=== PATIENT | female | born 1965 | race Caucasian/White ===

== ENCOUNTER 2020-04-22 16:58 | Emergency (ER) | payer OTHER, SELFPAY ==
[2020-04-22 17:15] VITALS: BP 123/85; PULSE 92; RESP 18; TEMP 36.6; O2SAT 95
--- NOTE | 2020-04-22 17:22 | ECG_ITS ---
Test Reason : MED CLLEARENCE Blood Pressure : / mmHG Vent. Rate : 083 BPM Atrial Rate : 083 BPM P-R Int : 136 ms QRS Dur : 078 ms QT Int : 386 ms P-R-T Axes : 069 056 050 degrees QTc Int : 453 ms Normal sinus rhythm Nonspecific T wave abnormality Abnormal ECG When compared with ECG of 17-MAR-2018 10:27, Premature atrial complexes are no longer Present T wave inversion now evident in Anterior leads Referred By: Neena Lucas Electronically Signed By:LILLY VALENCIA
[2020-04-22 17:27] VITALS: PULSE 92; RESP 20; TEMP 36.6; O2SAT 95; BMI 48.2
--- NOTE | 2020-04-22 17:35 | PC.NURSE ---
Pt arrived w/ EMS, tearful, speech slurred. Pt admits to drinking 1/2 bottle of vodka. Pt states she has a hx etoh use in the past but not recently. Pt states that she was waiting for results from COVID testing and became frustrated. Pt denies SI.
--- NOTE | 2020-04-22 17:45 | ED.ALCOHOL ---
HPI - Alcohol General Chief Complaint: ETOH/Substance Use Stated Complaint: crisis evaluation Time Seen by Provider: 04/22/20 17:16 Source: patient and EMS Mode of arrival: EMS Limitations: no limitations History of Present Illness HPI narrative: 54-year-old female with a past medical history of hypertension here with alcohol intoxication. She tells me that she has had body aches, back pain, malaise for the last few days and had outpatient COVID test done 2 days ago. She called her primary care doctor today to try to find her results and became very frustrated as she felt like she was not getting her answers. She tells me she drank 1/2 a bottle of vodka this afternoon. Previous history of alcohol abuse but has been sober for more than 6 months. No additional substance use. EMS was called as the patient was on the phone with her primary care doctor was very tearful and then hung up the phone. They were sent for a well check. Patient was then transported here to the emergency department. She denies SI, HI. Denies hallucinations. She has no physical complaints outside of her previously mentioned complaints. MD complaint: alcohol intoxication Last drink: Hours (ago) Chronic alcohol use: No Previous visits for alcohol intoxication: No Recent trauma: No Associated symptoms: denies other symptoms Treatments prior to arrival: none Related Data Home Medications Medication Instructions Recorded Confirmed naltrexone 50 mg PO DAILY 04/22/20 04/22/20 sertraline 50 mg PO DAILY 04/22/20 04/22/20 Allergies Allergy/AdvReac Type Severity Reaction Status Date / Time Penicillins [PENICILLINS] Allergy Intermediate HIVES Unverified 12/18/19 17:10 Review of Systems Review of Systems: Yes all other systems are reviewed and are negative Constitutional: Constitutional: Reports no additional constitutional complaints, Reports body ache(s), Denies chills, Denies fever(s), Denies headache(s), Reports malaise and Denies weakness Eyes: Eyes: Reports no additional eye complaints and Denies change in vision ENT: Reports system reviewed and no additional complaints, except as documented, Denies dizziness, Denies headache(s), Denies nasal congestion, Denies nasal discharge and Denies neck pain Cardiovascular: Cardiovascular: Reports no additional cardiovascular complaints, Denies chest pain, Denies leg edema and Denies dyspnea Respiratory: Respiratory: Reports no additional respiratory complaints, Denies cough and Denies dyspnea Gastrointestinal: Gastrointestinal: Reports no additional gastrointestinal complaints, Denies abdominal pain, Denies diarrhea, Denies nausea and Denies vomiting Genitourinary: Genitourinary: Reports no additional female genitourinary complaints and Denies urinary incontinence Musculoskeletal: Musculoskeletal: Reports no additional musculoskeletal complaints, Reports back pain, Denies arthralgias, Denies joint swelling, Denies neck pain, Denies numbness and Denies tingling Integumentary/Breasts: Skin/Breast: Reports system reviewed and no additional complaints, except as docu and Denies rash Neurologic: Reports system reviewed and no additional complaints, except as documented, Denies Abnormal speech present, Denies dizziness, Denies headache(s), Denies numbness, Denies tingling and Denies weakness PMFSH Past Medical History Attestation statement: The following information was validated with the patient. Source: old records reviewed and nursing notes reviewed Social History Social History Alcohol intake: current Alcohol type: hard liquor Smoking Status: Current every day smoker Use of substances other than those prescribed or required for medical reasons: No Advance Directives: No Advance Directives Information Provided: Yes Physical Exam Vital Signs: Vital Signs: Last Vital Signs Temp 97.8 F 04/22/20 17:27 Pulse 92 04/22/20 17:27 Resp 20 04/22/20 17:27 BP 123/85 04/22/20 17:15 Pulse Ox 95 04/22/20 17:27 Body Mass Index 48.2 Const: General: cooperative, healthy appearing, comfortable, no acute distress and intoxicated appearing Orientation/consciousness: patient oriented x3 Limitations: no limitations HENMT: Head: Yes normal to inspection Ears: hearing grossly normal bilaterally General nose exam: Normal external nose present Face and sinus: Yes normal facial exam Mouth: Normal oral and palatal mucosa present Throat: Yes posterior oropharynx normal Eyes: General: appearance normal, both eyes and all related structures Pupils: Equal, round and reactive pupils present Neck: Neck: Yes normal visual inspection Chest: Chest palpation & inspection: normal inspection of the chest Resp: Effort & Inspection: normal respiratory effort Auscultation: clear to auscultation bilaterally Cardio: Rate: regular rate Rhythm: regular rhythm Peripheral pulses: Peripheral pulses 2+ throughout GI: Inspection: Yes normal to inspection Palpation (GI): Soft to palpation and nontender Auscultation: normal bowel sounds Back/Spine/Pelvis: Thoracic/Lumbar Spine: thoracic and lumbar spine normal to inspection Skin: General skin exam: no rashes or lesions noted Neuro: General: patient oriented x3, no focal motor deficits and normal sensation to monofilament Cranial nerves: Yes Equal, round and reactive pupils present Cognition (Neuro): normal cognition Speech: No Abnormal speech present Gait exam (Neuro): Normal gait present Motor exam (neuro): 5/5 motor strength present throughout Extrem: General: Yes normal to inspection Course Course Course Narrative: 54-year-old female here with alcohol intoxication. EMS was called as a well check the patient called her primary care doctor was very tearful and then hung up the phone. She does tell me that she drink today and has been sober for more than 6 months. This has caused her to feel upset. She denies any SI or HI or hallucinations. Denies additional substances. She did get COVID testing several days ago for complaints of malaise, body aches and back pain and does not know her results. WIll check labs, EKG, COVID testing. [facility] - Alcohol Medical Records Attestation: I reviewed the patient's medical records. Lab Data Attestation: I reviewed the patient's lab results. Result diagrams: 04/22/20 19:40 Labs: Lab Results 04/22/20 04/22/20 04/22/20 Range/Units 17:49 18:04 18:05 Hold Blue Top Sodium (135-145) mmol/L Potassium (3.3-5.1) mmol/l Chloride (96-108) mmol/L Carbon Dioxide (22-29) mmol/L Anion Gap (12-20) BUN (9-16) mg/dL Creatinine (0.5-1.4) mg/dL Estim Creat Clear Calc Estimated GFR Random Glucose (60-115) mg/dL Calcium (8.4-10.2) mg/dL Urine Color YELLOW Urine Appearance CLEAR Urine pH 5.5 (5.0-8.0) Ur Specific [place] <= 1.005 (1.005-1.025) Urine Protein NEG (NEG-TRACE) MG/DL Urine Glucose (UA) NEG (NEG) MG/DL Urine Ketones NEG (NEG) MG/DL Urine Blood NEG (NEG) Urine Nitrite NEG (NEG) Ur Leukocyte Esterase NEG (NEG) Urine Opiates Screen Not Detected (Not Detect) Ur Barbiturates Screen Not Detected (Not Detect) Ur Phencyclidine Scrn Not Detected (Not Detect) Ur Amphetamines Screen Not Detected (Not Detect) U Benzodiazepines Scrn Not Detected (Not Detect) Urine Cocaine Screen Not Detected (Not Detect) U Marijuana (THC) Screen Not Detected (Not Detect) Ethyl Alcohol mg/dL COVID-19 ([facility]) Negative (Negative) COVID-19 Clin Com See Note 04/22/20 04/22/20 04/22/20 Range/Units 19:40 19:40 19:40 Hold Blue Top SEE NOTE Sodium 147 H (135-145) mmol/L Potassium 3.5 (3.3-5.1) mmol/l Chloride 99 (96-108) mmol/L Carbon Dioxide 33 H (22-29) mmol/L Anion Gap 19 (12-20) BUN 13 (9-16) mg/dL Creatinine 0.79 (0.5-1.4) mg/dL Estim Creat Clear Calc 94.8 Estimated GFR > 60 Random Glucose 82 (60-115) mg/dL Calcium 10.4 H (8.4-10.2) mg/dL Urine Color Urine Appearance Urine pH (5.0-8.0) Ur Specific [place] (1.005-1.025) Urine Protein (NEG-TRACE) MG/DL Urine Glucose (UA) (NEG) MG/DL Urine Ketones (NEG) MG/DL Urine Blood (NEG) Urine Nitrite (NEG) Ur Leukocyte Esterase (NEG) Urine Opiates Screen (Not Detect) Ur Barbiturates Screen (Not Detect) Ur Phencyclidine Scrn (Not Detect) Ur Amphetamines Screen (Not Detect) U Benzodiazepines Scrn (Not Detect) Urine Cocaine Screen (Not Detect) U Marijuana (THC) Screen (Not Detect) Ethyl Alcohol 321 H* mg/dL COVID-19 ([facility]) (Negative) COVID-19 Clin Com Discharge Plan Discharge Prescriptions: No Action naltrexone 50 mg Tablet 50 mg PO DAILY RF: 0 sertraline 50 mg Tablet 50 mg PO DAILY RF: 0
--- NOTE | 2020-04-22 17:58 | PC.NURSE ---
Pt awake alert, accepted covid testing, now eating meal.
[2020-04-22 18:24] LABS: Glucose Urine UA NEG (NEG); Leukocyte Esterase Urine NEG (NEG); Nitrite Urine NEG (NEG); PH 5.5 (5.0-8.0); Specific Gravity - Urine <= 1.005 (1.005-1.025); Urine Blood NEG (NEG); Urine Ketones NEG (NEG); Urine Protein NEG (NEG-TRACE)
[2020-04-22 18:25] LABS: Appearance Urine CLEAR; Color Urine YELLOW
[2020-04-22 19:13] LABS: COVID-19 Test Negative (Negative)
--- NOTE | 2020-04-22 19:14 | PC.NURSE ---
Patient is in her bed lying on her side calm and quiet, slurred speech, alert but continues under influence, patient seems happy when she was told her covid test is negative, denied distress, will continue to monitor.
[2020-04-22 19:45] LABS: Amphetamine Screen Urine Not Detected (Not Detect); Barbiturates, Urine Not Detected (Not Detect); Benzodiazepines Screen Urine Not Detected (Not Detect); Cannabinoid Screen Urine Not Detected (Not Detect); Cocaine Screen Urine Not Detected (Not Detect); Opiate Screen Urine Not Detected (Not Detect); Phencyclidine Screen Urine Not Detected (Not Detect)
[2020-04-22] MEDS: LORazepam 1 MG TABLET PO (19:46)
--- NOTE | 2020-04-22 19:50 | PC.NURSE ---
Patient got anxious/restless/frightened during and after lab draw, provider notified/ordered Ativan 1 mg/administered as ordered, will continue to monitor.
[2020-04-22 20:12] LABS: Ethanol 321 mg/dL
[2020-04-22 20:15] LABS: Anion Gap 19 (12-20); Blood Urea Nitrogen 13 mg/dL (9-16); Calcium 10.4 mg/dL (8.4-10.2); Carbon Dioxide 33 mmol/L (22-29); Chloride 99 mmol/L (96-108); Creatinine Clr Calc Pharmacy 94.8; Estimated Glomerular Filt Rate > 60; Glucose Random 82 mg/dL (60-115); Potassium 3.5 mmol/l (3.3-5.1); Sodium 147 mmol/L (135-145)
[2020-04-23 00:24] LABS: MANUAL DIFF FLAG NO
[2020-04-23 00:31] LABS: Basophils Absolute Auto 0.1 X10*3/uL (0.0-0.2); Basophils Percent Auto 1.2 % (0-2); Eosinophils Absolute Auto 0.3 X10*3/uL (0.0-0.4); Eosinophils Percent Auto 5.9 % (0-4); Hematocrit 32.3 % (37-47); Hemoglobin 10.9 g/dl (12.0-16.0); Imm Gran Abs Auto 0.02 X10*3/uL (0.00-0.03); Imm Gran Pct Auto 0.4 % (0.0-0.4); Lymphocytes Absolute Auto 2.5 X10*3/uL (1.2-4.9); Lymphocytes Percent Auto 50.3 % (20-40); Mean Corpuscular HGB Conc 33.7 g/dl (31.0-35.0); Mean Corpuscular Hemoglobin 30.5 pg (27.0-33.0); Mean Corpuscular Volume 90.5 fL (80-98); Mean Platelet Volume 9.9 fL (9.4-12.3); Monocytes Absolute Auto 0.4 X10*3/uL (0.1-1.2); Monocytes Percent Auto 7.3 % (2-11); Neutrophils Absolute Auto 1.8 X10*3/uL (2.0-8.3); Neutrophils Percent Auto 34.9 % (45-73); Platelet Count 162 X10*3/uL (160-400); Red Blood Count 3.57 X10*6/uL (4.20-5.50); Red Cell Distribution Width 15.3 % (11.0-16.0); White Blood Count 5.1 X10*3/uL (4.8-10.8)
--- NOTE | 2020-04-23 07:15 | PC.NURSE ---
Report received from CHRISTINE Matthews. Pt awake, eating breakfast.
[2020-04-23 08:00] VITALS: BP 132/84; PULSE 81; RESP 20; TEMP 36.4; O2SAT 96
--- NOTE | 2020-04-23 08:41 | PC.NURSE ---
CARE team in to see. Pt alert, gait steady when ambulating.
--- NOTE | 2020-04-23 08:55 | PC.NURSE ---
CARE team Amor in to see pt re: resources regarding relapse.
--- NOTE | 2020-04-23 08:57 | MHC.CARE ---
CARE Team met with Pt who is requesting be discharged. Pt denied SI/HI. Pt presented to the ED with BAL over 300 on 04/22/20. Pt offered different resources and support by t/w. Pt offered Crisis and/or detox support which Pt declined. Pt provided with [facility] Crisis information and encouraged to return to [facility] ED if needed.
--- NOTE | 2020-04-23 09:03 | MHC.RECOVSUP ---
Recovery Support note: Patient is a 55 year old Hungarian speaking female who presented to [facility] ED via EMS intoxicated reporting life stressors. This staff writer met with patient in [facility] to discuss her alcohol use and treatment options. Patient reports she had six months sobriety and relapsed due to numerous stressors. Discussed outpatient supports with patient including AA, [facility], IOP and recovery coaching. Patient is well aware of these supports and reports she can access them if she decides to. Patient reports she has a therapist who has been helpful and who she can reach out to for additional support. Encouraged patient to come up with a relapse prevention plan and to utilize the supports she has in place when things get stressful. Encouraged patient that she should be proud of her period of sobriety and to not let the relapse slow down her progress. Discussed case with patient's RN and Care Team.
--- NOTE | 2020-04-23 09:03 | PC.NURSE ---
Pt given discharge instructions, verbalized understand of instructions, states she can be safe, states stepfather will give her a ride home.
== END 2020-04-23 09:03 | disposition home or self-care (01) ==
PROVIDERS: Nurse Practitioner Family; Emergency Provider Emergency Medicine
DX: F10.129 Alcohol abuse with intoxication, unspecified (principal); M79.10 Myalgia, unspecified site; Y90.8 Blood alcohol level of 240 mg/100 ml or more; F17.200 Nicotine dependence, unspecified, uncomplicated; Z71.6 Tobacco abuse counseling; Z20.828 Contact with and (suspected) exposure to other viral communicable diseases; Z71.41 Alcohol abuse counseling and surveillance of alcoholic
CPT/HCPCS: 36415; 80048; 80307; 80320; 81003; 85025; 87635; 93005; 99283; 99284

== ENCOUNTER 2020-05-02 12:24 | Emergency (ER) | payer OTHER, SELFPAY ==
[2020-05-02 12:33] VITALS: BP 140/96; PULSE 82; RESP 16; TEMP 36.8; O2SAT 95; BMI 21.4
--- NOTE | 2020-05-02 12:58 | ECG_ITS ---
Test Reason : AMS Blood Pressure : / mmHG Vent. Rate : 070 BPM Atrial Rate : 070 BPM P-R Int : 142 ms QRS Dur : 086 ms QT Int : 404 ms P-R-T Axes : 056 060 046 degrees QTc Int : 436 ms Normal sinus rhythm Cannot rule out Anterior infarct , age undetermined Abnormal ECG When compared with ECG of 23-APR-2020 01:38, T wave inversion no longer evident in Anterior leads Referred By: Lianet Donovan Electronically Signed By:Brayan Florian
--- NOTE | 2020-05-02 13:00 | XR_ITS ---
EXAMINATION: XR CHEST CLINICAL INFORMATION: weakness, sob, abd pain ? covid COMPARISON: None TECHNIQUE: AP portable upright view of the chest FINDINGS: Cardiac leads overlie the chest. Lungs are clear. No consolidation, pneumothorax, or pleural effusion. Cardiac and mediastinal contours are normal. Pulmonary vasculature is unremarkable. Osseous structures are unremarkable. XR/XR chest 1V IMPRESSION: No acute cardiopulmonary findings
[2020-05-02 13:42] LABS: MANUAL DIFF FLAG NO
[2020-05-02 13:44] LABS: Basophils Absolute Auto 0.1 X10*3/uL (0.0-0.2); Eosinophils Percent Auto 0.1 % (0-4); Hematocrit 37.9 % (37-47); Imm Gran Abs Auto 0.02 X10*3/uL (0.00-0.03); Imm Gran Pct Auto 0.2 % (0.0-0.4); Lymphocytes Absolute Auto 1.2 X10*3/uL (1.2-4.9); Lymphocytes Percent Auto 15.1 % (20-40); Mean Corpuscular HGB Conc 34.3 g/dl (31.0-35.0); Mean Corpuscular Hemoglobin 31.3 pg (27.0-33.0); Mean Corpuscular Volume 91.3 fL (80-98); Mean Platelet Volume 9.1 fL (9.4-12.3); Monocytes Absolute Auto 0.6 X10*3/uL (0.1-1.2); Monocytes Percent Auto 7.9 % (2-11); Neutrophils Absolute Auto 6.2 X10*3/uL (2.0-8.3); Neutrophils Percent Auto 75.7 % (45-73); Platelet Count 212 X10*3/uL (160-400); Red Blood Count 4.15 X10*6/uL (4.20-5.50); Red Cell Distribution Width 15.9 % (11.0-16.0); White Blood Count 8.1 X10*3/uL (4.8-10.8)
[2020-05-02 13:44] LABS: Glucose Urine UA NEG (NEG); Leukocyte Esterase Urine NEG (NEG); Nitrite Urine NEG (NEG); PH 5.5 (5.0-8.0); Urine Blood NEG (NEG); Urine Ketones 5 MG/DL (NEG); Urine Protein NEG (NEG-TRACE)
[2020-05-02 13:45] LABS: Appearance Urine HAZY; Color Urine STRAW
[2020-05-02 13:49] LABS: INTERNATIONAL NORM RATIO 0.9 (0.9-1.1); Prothrombin Time 10.3 SEC (10.8-13.0)
[2020-05-02 13:52] LABS: D Dimer 249 NG/ML; Partial Thromboplastin Time 30.2 SEC (24.1-38.0)
[2020-05-02] MEDS: LORazepam 2 MG/ML VIAL 0.5 MG IVPUSH (14:00)
[2020-05-02 14:06] LABS: Ethanol 388 mg/dL
[2020-05-02 14:07] LABS: Lipase 39 U/L (8-78)
[2020-05-02 14:11] LABS: B Type Natriuretic Peptide 14 pg/mL (<100); Troponin-I High Sensitivity 10.3 ng/L (<3.5-17.0)
[2020-05-02 14:12] LABS: Alanine Aminotransferase 44 U/L (0-31); Albumin Level 4.9 g/dL (3.5-5.0); Alkaline Phosphatase 93 U/L (39-117); Anion Gap 24 (12-20); Aspartate Amino Transferase 56 U/L (5-31); Bilirubin Direct 0.2 mg/dL (0.0-0.5); Bilirubin Total 0.3 mg/dL (0.0-1.0); Blood Urea Nitrogen 10 mg/dL (9-16); C Reactive Protein 0.05 mg/dL (< or = 0.50); Carbon Dioxide 23 mmol/L (22-29); Chloride 96 mmol/L (96-108); Creatinine Clr Calc Pharmacy 65.8; Estimated Glomerular Filt Rate > 60; Glucose Random 79 mg/dL (60-115); Lactate Dehydrogenase 300 U/L (122-220); Magnesium 1.4 mg/dL (1.6-2.6); Potassium 3.8 mmol/L (3.3-5.1); Sodium 139 mmol/L (135-145)
--- NOTE | 2020-05-02 14:18 | CT_ITS ---
EXAMINATION: CT ANGIOGRAM OF THE CHEST WITH AND WITHOUT CONTRAST (CT PULMONARY ANGIOGRAM FOR PE) CT ABDOMEN PELVIS WITH CONTRAST CLINICAL INFORMATION: upper abd pain recent etoh intake. COMPARISON: No pertinent prior studies are available for comparison. TECHNIQUE: Prior to contrast administration, noncontrast localization images were obtained. Subsequently, multidetector volumetric imaging was performed from the thoracic inlet to the pubic symphysis through the chest, abdomen, and pelvis following the administration of 65.1 mL Omnipaque 350 intravenous contrast. Chest images were obtained during the pulmonary arterial phase of contrast enhancement. Abdomen and pelvis images were obtained during the portal venous phase. No contrast reaction reported Sagittal, coronal, and MIP oblique sagittal (through the chest only) reformatted images were obtained on the CT workstation, uploaded to PACS, and reviewed. Total exam dose-length product: 1092 mGy-cm This CT examination was performed using dose optimization techniques as appropriate, variously including the following: *Automated exposure control *Adjustment of mA and/or kV according to patient size (this includes techniques or standardized protocols for targeted exams where dose is matched to indication/reason for exam; i.e. extremities or head) *Use of iterative reconstruction technique FINDINGS: CHEST: QUALITY OF STUDY/CONTRAST BOLUS: Satisfactory. PULMONARY ARTERIES: No central or segmental pulmonary emboli. THORACIC AORTA: No aneurysm or dissection. LUNG: Mild dependent atelectasis in the lower lobes. No consolidation or pulmonary nodules. Central airways are clear. No bronchiectasis. PLEURA: No pleural effusion or pneumothorax. MEDIASTINUM: Normal heart size. No pericardial effusion. No hilar or mediastinal lymphadenopathy. No evidence of septal bowing or right heart strain. CHEST WALL/AXILLA: No axillary or internal mammary lymphadenopathy. ABDOMEN/PELVIS: LIVER, GALLBLADDER AND BILIARY TREE: Relative hypoattenuation in hepatic parenchyma is consistent with steatosis. The liver is normal in size and shape. No focal hepatic lesion or biliary ductal dilatation is present. The gallbladder is unremarkable with no evidence of radiopaque gallstones, gallbladder wall thickening, or obvious pericholecystic inflammatory changes. PANCREAS: Normal; no mass or surrounding fluid. SPLEEN: Normal size. No focal lesion. ADRENAL GLANDS: There is a 1.3 cm left adrenal nodule which measures 10 Hounsfield units on the pulmonary arterial phase images, most consistent with a lipid rich adrenal adenoma. No right renal lesions. KIDNEYS AND URETERS: The kidneys are normal in size, shape, and attenuation. No hydronephrosis, hydroureter, or calculi. GASTROINTESTINAL TRACT: Stomach, small bowel, and colon are normal in caliber. Mild apparent wall thickening of descending and rectum is likely related to underdistention. No pericolonic inflammatory changes are identified in this region. Otherwise, no bowel wall thickening or surrounding inflammatory changes. Appendix is normal. No intraperitoneal free fluid or free air. ABDOMINAL WALL: No significant hernia is appreciated. LYMPHOVASCULAR STRUCTURES: No lymphadenopathy. The aorta is unremarkable. BLADDER: Full. No focal mass or wall thickening seen. No bladder calculi. PELVIC VISCERA: Normal CT appearance of the uterus. No adnexal mass seen. OSSEOUS STRUCTURES: No acute or suspicious osseous abnormality. Anterior wedging of the T12 and L1 vertebral bodies developmental/congenital in nature. No acute fractures are identified. Moderate to severe degenerative disc disease present C6-C7 at the superior margin of the study. CT/CT angio chest PE protocol IMPRESSION: 1. No acute findings in the chest, abdomen, and pelvis. No evidence of pulmonary emboli. 2. Hepatic steatosis. 3. A 1.3 cm lipid rich left adrenal adenoma. 4. Moderate to severe degenerative disc disease at C6-C7. VTE: negative
--- NOTE | 2020-05-02 14:18 | CT_ITS ---
EXAMINATION: CT HEAD WITHOUT CONTRAST CLINICAL INFORMATION: Altered mental status. recent etoh intake ? fall COMPARISON: 03/12/2016 TECHNIQUE: Contiguous axial imaging was performed from the skull base to vertex without intravenous administration of contrast. This CT examination was performed using dose optimization techniques as appropriate, variously including the following: *Automated exposure control *Adjustment of mA and/or kV according to patient size (this includes techniques or standardized protocols for targeted exams where dose is matched to indication/reason for exam; i.e. extremities or head) *Use of iterative reconstruction technique DLP: 1092 mGy-cm FINDINGS: There is no evidence of acute intracranial hemorrhage or territorial infarction. No abnormal mass effect or midline shift is seen. Mendoza to white matter differentiation is well preserved. No extra-axial fluid collections are identified. The ventricles are normal in size. There is no abnormal attenuation within the brain parenchyma. The osseous structures and soft tissues are normal. Minimal mucoperiosteal thickening in the maxillary sinuses, left greater than right. The mastoid air cells and visualized portions of the paranasal sinuses are otherwise well aerated. CT/CT head/brain wo con IMPRESSION: No acute intracranial pathology.
[2020-05-02 14:19] LABS: Amphetamine Screen Urine Not Detected (Not Detect); Barbiturates, Urine Not Detected (Not Detect); Benzodiazepines Screen Urine Not Detected (Not Detect); Cannabinoid Screen Urine Not Detected (Not Detect); Cocaine Screen Urine Not Detected (Not Detect); Opiate Screen Urine Not Detected (Not Detect); Phencyclidine Screen Urine Not Detected (Not Detect)
[2020-05-02 14:28] LABS: Ferritin 97 ng/mL (10-250)
[2020-05-02 14:35] LABS: Procalcitonin 0.03 ng/mL
[2020-05-02 14:40] LABS: Influenza A PCR NEGATIVE (Negative); Influenza B PCR NEGATIVE (Negative); Resp Syncy Virus RNA Qual PCR NEGATIVE (Negative); SARS COV2 PCR INHOUSE NEGATIVE (Negative)
[2020-05-02] MEDS: Magnesium Sulfate/H2O 2 GM/50 ML PIGGYBACK IV (14:55)
--- NOTE | 2020-05-02 15:05 | ED_ITS ---
HPI - General Adult General Chief complaint: ETOH/Substance Use Stated complaint: Difficulty Breathing Time Seen by Provider: 05/02/20 12:57 Source: patient Mode of arrival: ambulatory Limitations: other (Intoxicated and poor historian) History of Present Illness HPI narrative: 55yoF c PMHX of alcoholism, depression and adjustment disorder presenting to the ED with complaints of generalized weakness, fatigue, shortness of breath, right upper quadrant abdominal pain with associated diarrhea and increased anxiety/depression. Reports that she was sober and recently relapsed 2 weeks ago and is now seeking detox. Reports that she drinks 1 pt of vodka daily and her last drink was 2 hours ago. 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 Patient denies any fevers, chills, headaches, sore throat, nasal congestion, dizziness, chest pain, dyspnea on exertion, orthopnea, back pain, focal weakness, nausea/vomiting, hematuria, dysuria, abnormal vaginal discharge, constipation, recent travel or sick contacts or recent fall or injuries or trauma. Denies any SI/HI/auditory or visual hallucinations or thoughts of self injury. Reports that she lives with her stepfather feel safe with her stepfather in their apartment together. Denies any other symptom complaints or concerns at this time. Related Data Home Medications Medication Instructions Recorded Confirmed naltrexone 50 mg PO DAILY 04/22/20 04/22/20 sertraline 50 mg PO DAILY 04/22/20 04/22/20 Allergies Allergy/AdvReac Type Severity Reaction Status Date / Time Penicillins [PENICILLINS] Allergy Intermediate HIVES Verified 05/02/20 13:38 Review of Systems Review of Systems: Constitutional : + Fatigue, + Malaise, No Fever, No Chills, No Night Sweats ENT/Mouth : No Ear Pain, No Nasal Congestion, No Sinus Pain, No sore throat, No Rhinorrhea Eyes: No Eye Pain, No Swelling, No Redness, No Foreign Body, No Discharge, No Vision Changes Cardiovascular : + SOB, No Chest Pain, No Dyspnea on Exertion, No Orthopnea, No Palpitations Respiratory : No Cough, No Sputum, No Wheezing, No Dyspnea Gastrointestinal : + Abdominal pain, + Diarrhea, No Nausea, No Vomiting, No Constipation, No Hematochezia, No Melena Genitourinary : No Dysuria, No Urinary Frequency, No Urinary Incontinence, No Urgency, No Flank Pain Musculoskeletal : No joint pain, No Myalgias Skin : No lacerations, no rashes, no skin lesions Neuro : No Focal weakness, No Numbness, No Paresthesias, No Loss of Consciousne ss, No Dizziness, No Headache Psych : + Anxiety, + Depression, No SI, No thoughts of self injury, No HI, No AVH, Heme/Lymph: No Lymphadenopathy Endocrine : No Polyuria, No Polydipsia Yes all other systems are reviewed and are negative [facility] Past Medical History Attestation statement: The following information was validated with the patient. Medical History H/O alcohol abuse Social History Social History Alcohol intake: current Alcohol type: hard liquor Smoking Status: Current every day smoker Advance Directives: No Advance Directives Information Provided: No Physical Exam Vital Signs: Vital Signs: Last Vital Signs Temp 98.3 F 05/02/20 12:33 Pulse 74 05/02/20 15:11 Resp 20 05/02/20 15:11 BP 137/82 05/02/20 15:11 Pulse Ox 100 05/02/20 15:11 Body Mass Index 21.4 vital signs have been reviewed as normal and appeared to be correct. Blood pressure normal. Heart rate normal. Respiration rate normal. Temperature normal. Oxygen saturation normal. Appearance: Alert crying throughout exam, very anxious although intoxicated with EtOH odor on breath. Oriented X3. No acute distress. Head: Normal external exam. Normocephalic. Atraumatic. Able to rotate head bilaterally. No Werner signs noted. No raccoon eyes noted Eyes: PERRLA. EOMI. No nystagmus noted. Conjunctiva and sclera normal. Eyelids normal. Corneal reflex normal. ENT: EAC normal. TM's Normal. No septal hematoma noted. No hemotympanum noted. Hearing normal. Pharynx normal. Uvula midline. tongue midline. Moist mucous membranes. No trismus noted. No drooling noted. No muffled voice noted. No nystagmus noted. Neck: Normal inspection. Neck supple. FROM. No adenopathy. Thyroid Normal. Trachea midline. No meningeal signs. No neck mass noted. CVS: Normal heart rate and rhythm. Heart sound normal. No murmurs noted. Pulses normal throughout. Respiratory: No respiratory distress. Painless inspiration. Breath sounds normal. No wheezes/rales/rhonchi noted. Chest nontender. No accessory muscle usage noted or decreased air movement noted. Abdomen: Soft and nontender. Bowel sounds normal in all 4 quadrants. No distention noted. No organomegaly noted. No visible injury noted. Back: No CVA tenderness. Full range of motion noted. Skin: Skin warm and dry. Normal skin color. Normal skin turgor. No rashes/lesions/lacerations noted. Extremities: No lower extremity edema. No calf tenderness noted. Extremities exhibit normal range of motion. Extremities nontender. Neuro: Oriented X 3. No motor deficit. No sensory deficit. Reflexes normal. Moving all extremities. No focal motor deficits. Cranial nerves II-XI intact bilaterally. Facial strength normal. Normal cognition. Speech sluured due to intoxicated otherwise no aphasia or dysphagia. Gait normal. Strength 5/5 throughout. No pronator drift. No tremor noted. No fasciculations noted. No rigidity noted. Muscle tone normal throughout. No asterixis noted. [id number] test normal. Heel to mendoza test normal. Tandem gait normal. Does not sway with eyes open. Romberg test negative. Rapid alternating movement upper extremity normal. Rapid alternating movement lower extremity normal. Hand drop from overhead Misses face. NIHSS score 0. Psych: Patient appears a disheveled, intoxicated, anxious, sad, tearful and depressed appearing, mental status normal, speech is slurred due to intoxicated, movement is normal, patient is cooperative. Normal thought process. Normal thought content. Does not have good insight. Judgment is not good. Course Course Course Narrative: 13:00pm - 55yoF c PMHX of alcoholism, depression and adjustment disorder presenting to the ED c c/o of generalized weakness, fatigue, shortness of breath, right upper quadrant abdominal pain with associated diarrhea and increased anxiety/depression, recently relapsed 2 weeks ago on ETOH and is now seeking detox. - on exam patient is very anxious, tearful with EtOH on odor breath. Although patient is alert and oriented x3 not in any other acute distress. Vital signs are stable within normal limits. - Plan: Labs, CT scan of brain, CT of chest for PE, CT scan of abd/pelvis c IV contrast, EKG, chest x-ray, COVID/RSV/flu swab. Provide half a mg of Ativan and a L of IV fluids then re-evaluate. Reevaluation(s) Reevaluation #1: - anion gap 24 - magnesium 1.4 - AST/ALT 56/54 - LDH 300 - troponin 10.3 - ETOH level 388 - all other labs are within normal limits. - CXR WNL no acute processes noted. - on CT scan of brain/chest and abdomen and pelvis that revealed patient had hepatic steatosis, a 1.3 cm lipid rich left adrenal adenoma otherwise no other acute processes. - EKG NSR with ventricular rate of 70 with a normal VA interval normal QRS duration normal QT/QTC interval no acute ischemic changes and similar when compared to prior EKG on 04/23/2020 - patient is being given 2 g of IV magnesium at this time. - will repeat the patient's troponin at 16:30. If troponin trends down patient will be medically cleared and a BHN evaluation will be obtained for possible inpatient psychiatric rehabilitation versus detox. Patient understands agrees with this plan. Time: 14:20 Reevaluation #2: - sign out to DAY Trejo pending repeat troponin if troponin trends down I explained to hilary that patient can be moved to the Pod for BHN evaluation for possible inpatient psychiatric rehabilitation versus detox. Patient understands agrees with this plan. Time: 18:07 Medical Decision Making Medical Records Medical records reviewed: Yes I reviewed the patient's medical records. Lab Data Lab results reviewed: Yes I reviewed the patient's lab results. Result diagrams: 05/02/20 13:36 05/02/20 13:36 Labs: Lab Results 05/02/20 05/02/20 05/02/20 Range/Units 13:28 13:28 13:36 WBC 8.1 (4.8-10.8) X10*3/uL RBC 4.15 L (4.20-5.50) X10*6/uL Hgb 13.0 (12.0-16.0) g/dl Hct 37.9 (37-47) % MCV 91.3 (80-98) fL MCH 31.3 (27.0-33.0) pg MCHC 34.3 (31.0-35.0) g/dl RDW 15.9 (11.0-16.0) % Plt Count 212 D (160-400) X10*3/uL MPV 9.1 L (9.4-12.3) fL Immature Gran % (Auto) 0.2 (0.0-0.4) % Neut % (Auto) 75.7 H (45-73) % Lymph % (Auto) 15.1 L (20-40) % [place] % (Auto) 7.9 (2-11) % Eos % (Auto) 0.1 (0-4) % Baso % (Auto) 1.0 (0-2) % Lymph # (Auto) 1.2 (1.2-4.9) X10*3/uL [place] # (Auto) 0.6 (0.1-1.2) X10*3/uL Eos # (Auto) 0.0 (0.0-0.4) X10*3/uL Baso # (Auto) 0.1 (0.0-0.2) X10*3/uL Abs Immat Gran (auto) 0.02 (0.00-0.03) X10*3/uL Absolute Neuts (auto) 6.2 (2.0-8.3) X10*3/uL Absolute Nucleated RBC 0.000 (0.0-0.012) X10*3/uL Nucleated RBC % (auto) 0.0 (0.0-0.2) /100WBC PT (10.8-13.0) SEC INR (0.9-1.1) APTT (24.1-38.0) SEC D-Dimer NG/ML Sodium (135-145) mmol/L Potassium (3.3-5.1) mmol/L Chloride (96-108) mmol/L Carbon Dioxide (22-29) mmol/L Anion Gap (12-20) BUN (9-16) mg/dL Creatinine (0.5-1.4) mg/dL Estim Creat Clear Calc Estimated GFR Random Glucose (60-115) mg/dL Calcium (8.4-10.2) mg/dL Magnesium (1.6-2.6) mg/dL Ferritin (10-250) ng/mL Total Bilirubin (0.0-1.0) mg/dL Direct Bilirubin (0.0-0.5) mg/dL AST (5-31) U/L ALT (0-31) U/L Alkaline Phosphatase (39-117) U/L Lactate Dehydrogenase (122-220) U/L Troponin I High Sens (<3.5-17.0) ng/L C-Reactive Protein (< or = 0.50) mg/dL B-Natriuretic Peptide (<100) pg/mL Total Protein (6.5-8.0) g/dL Albumin (3.5-5.0) g/dL Lipase (8-78) U/L Procalcitonin ng/mL Urine Color STRAW Urine Appearance HAZY Urine pH 5.5 (5.0-8.0) Ur Specific [place] 1.010 (1.005-1.025) Urine Protein NEG (NEG-TRACE) MG/DL Urine Glucose (UA) NEG (NEG) MG/DL Urine Ketones 5 (NEG) MG/DL Urine Blood NEG (NEG) Urine Nitrite NEG (NEG) Ur Leukocyte Esterase NEG (NEG) Urine Opiates Screen Not Detected (Not Detect) Ur Barbiturates Screen Not Detected (Not Detect) Ur Phencyclidine Scrn Not Detected (Not Detect) Ur Amphetamines Screen Not Detected (Not Detect) U Benzodiazepines Scrn Not Detected (Not Detect) Urine Cocaine Screen Not Detected (Not Detect) U Marijuana (THC) Screen Not Detected (Not Detect) Ethyl Alcohol mg/dL Coronavirus (PCR) (Negative) Influenza Type A (PCR) (Negative) Influenza Type B (PCR) (Negative) RSV RNA Qual (PCR) (Negative) 05/02/20 05/02/20 05/02/20 Range/Units 13:36 13:36 13:36 WBC (4.8-10.8) X10*3/uL RBC (4.20-5.50) X10*6/uL Hgb (12.0-16.0) g/dl Hct (37-47) % MCV (80-98) fL MCH (27.0-33.0) pg MCHC (31.0-35.0) g/dl RDW (11.0-16.0) % Plt Count (160-400) X10*3/uL MPV (9.4-12.3) fL Immature Gran % (Auto) (0.0-0.4) % Neut % (Auto) (45-73) % Lymph % (Auto) (20-40) % [place] % (Auto) (2-11) % Eos % (Auto) (0-4) % Baso % (Auto) (0-2) % Lymph # (Auto) (1.2-4.9) X10*3/uL [place] # (Auto) (0.1-1.2) X10*3/uL Eos # (Auto) (0.0-0.4) X10*3/uL Baso # (Auto) (0.0-0.2) X10*3/uL Abs Immat Gran (auto) (0.00-0.03) X10*3/uL Absolute Neuts (auto) (2.0-8.3) X10*3/uL Absolute Nucleated RBC (0.0-0.012) X10*3/uL Nucleated RBC % (auto) (0.0-0.2) /100WBC PT 10.3 L (10.8-13.0) SEC INR 0.9 (0.9-1.1) APTT 30.2 (24.1-38.0) SEC D-Dimer 249 NG/ML Sodium 139 (135-145) mmol/L Potassium 3.8 (3.3-5.1) mmol/L Chloride 96 (96-108) mmol/L Carbon Dioxide 23 (22-29) mmol/L Anion Gap 24 H (12-20) BUN 10 (9-16) mg/dL Creatinine 0.71 (0.5-1.4) mg/dL Estim Creat Clear Calc 65.8 Estimated GFR > 60 Random Glucose 79 (60-115) mg/dL Calcium 9.0 D (8.4-10.2) mg/dL Magnesium 1.4 L* (1.6-2.6) mg/dL Ferritin (10-250) ng/mL Total Bilirubin 0.3 (0.0-1.0) mg/dL Direct Bilirubin 0.2 (0.0-0.5) mg/dL AST 56 H (5-31) U/L ALT 44 H (0-31) U/L Alkaline Phosphatase 93 (39-117) U/L Lactate Dehydrogenase 300 H (122-220) U/L Troponin I High Sens (<3.5-17.0) ng/L C-Reactive Protein 0.05 (< or = 0.50) mg/dL B-Natriuretic Peptide (<100) pg/mL Total Protein 8.0 (6.5-8.0) g/dL Albumin 4.9 (3.5-5.0) g/dL Lipase (8-78) U/L Procalcitonin ng/mL Urine Color Urine Appearance Urine pH (5.0-8.0) Ur Specific [place] (1.005-1.025) Urine Protein (NEG-TRACE) MG/DL Urine Glucose (UA) (NEG) MG/DL Urine Ketones (NEG) MG/DL Urine Blood (NEG) Urine Nitrite (NEG) Ur Leukocyte Esterase (NEG) Urine Opiates Screen (Not Detect) Ur Barbiturates Screen (Not Detect) Ur Phencyclidine Scrn (Not Detect) Ur Amphetamines Screen (Not Detect) U Benzodiazepines Scrn (Not Detect) Urine Cocaine Screen (Not Detect) U Marijuana (THC) Screen (Not Detect) Ethyl Alcohol mg/dL Coronavirus (PCR) NEGATIVE (Negative) Influenza Type A (PCR) NEGATIVE (Negative) Influenza Type B (PCR) NEGATIVE (Negative) RSV RNA Qual (PCR) NEGATIVE (Negative) 05/02/20 05/02/20 05/02/20 Range/Units 13:36 13:36 13:36 WBC (4.8-10.8) X10*3/uL RBC (4.20-5.50) X10*6/uL Hgb (12.0-16.0) g/dl Hct (37-47) % MCV (80-98) fL MCH (27.0-33.0) pg MCHC (31.0-35.0) g/dl RDW (11.0-16.0) % Plt Count (160-400) X10*3/uL MPV (9.4-12.3) fL Immature Gran % (Auto) (0.0-0.4) % Neut % (Auto) (45-73) % Lymph % (Auto) (20-40) % [place] % (Auto) (2-11) % Eos % (Auto) (0-4) % Baso % (Auto) (0-2) % Lymph # (Auto) (1.2-4.9) X10*3/uL [place] # (Auto) (0.1-1.2) X10*3/uL Eos # (Auto) (0.0-0.4) X10*3/uL Baso # (Auto) (0.0-0.2) X10*3/uL Abs Immat Gran (auto) (0.00-0.03) X10*3/uL Absolute Neuts (auto) (2.0-8.3) X10*3/uL Absolute Nucleated RBC (0.0-0.012) X10*3/uL Nucleated RBC % (auto) (0.0-0.2) /100WBC PT (10.8-13.0) SEC INR (0.9-1.1) APTT (24.1-38.0) SEC D-Dimer NG/ML Sodium (135-145) mmol/L Potassium (3.3-5.1) mmol/L Chloride (96-108) mmol/L Carbon Dioxide (22-29) mmol/L Anion Gap (12-20) BUN (9-16) mg/dL Creatinine (0.5-1.4) mg/dL Estim Creat Clear Calc Estimated GFR Random Glucose (60-115) mg/dL Calcium (8.4-10.2) mg/dL Magnesium (1.6-2.6) mg/dL Ferritin 97 (10-250) ng/mL Total Bilirubin (0.0-1.0) mg/dL Direct Bilirubin (0.0-0.5) mg/dL AST (5-31) U/L ALT (0-31) U/L Alkaline Phosphatase (39-117) U/L Lactate Dehydrogenase (122-220) U/L Troponin I High Sens 10.3 (<3.5-17.0) ng/L C-Reactive Protein (< or = 0.50) mg/dL B-Natriuretic Peptide 14 (<100) pg/mL Total Protein (6.5-8.0) g/dL Albumin (3.5-5.0) g/dL Lipase 39 (8-78) U/L Procalcitonin 0.03 ng/mL Urine Color Urine Appearance Urine pH (5.0-8.0) Ur Specific [place] (1.005-1.025) Urine Protein (NEG-TRACE) MG/DL Urine Glucose (UA) (NEG) MG/DL Urine Ketones (NEG) MG/DL Urine Blood (NEG) Urine Nitrite (NEG) Ur Leukocyte Esterase (NEG) Urine Opiates Screen (Not Detect) Ur Barbiturates Screen (Not Detect) Ur Phencyclidine Scrn (Not Detect) Ur Amphetamines Screen (Not Detect) U Benzodiazepines Scrn (Not Detect) Urine Cocaine Screen (Not Detect) U Marijuana (THC) Screen (Not Detect) Ethyl Alcohol mg/dL Coronavirus (PCR) (Negative) Influenza Type A (PCR) (Negative) Influenza Type B (PCR) (Negative) RSV RNA Qual (PCR) (Negative) 05/02/20 Range/Units 13:36 WBC (4.8-10.8) X10*3/uL RBC (4.20-5.50) X10*6/uL Hgb (12.0-16.0) g/dl Hct (37-47) % MCV (80-98) fL MCH (27.0-33.0) pg MCHC (31.0-35.0) g/dl RDW (11.0-16.0) % Plt Count (160-400) X10*3/uL MPV (9.4-12.3) fL Immature Gran % (Auto) (0.0-0.4) % Neut % (Auto) (45-73) % Lymph % (Auto) (20-40) % [place] % (Auto) (2-11) % Eos % (Auto) (0-4) % Baso % (Auto) (0-2) % Lymph # (Auto) (1.2-4.9) X10*3/uL [place] # (Auto) (0.1-1.2) X10*3/uL Eos # (Auto) (0.0-0.4) X10*3/uL Baso # (Auto) (0.0-0.2) X10*3/uL Abs Immat Gran (auto) (0.00-0.03) X10*3/uL Absolute Neuts (auto) (2.0-8.3) X10*3/uL Absolute Nucleated RBC (0.0-0.012) X10*3/uL Nucleated RBC % (auto) (0.0-0.2) /100WBC PT (10.8-13.0) SEC INR (0.9-1.1) APTT (24.1-38.0) SEC D-Dimer NG/ML Sodium (135-145) mmol/L Potassium (3.3-5.1) mmol/L Chloride (96-108) mmol/L Carbon Dioxide (22-29) mmol/L Anion Gap (12-20) BUN (9-16) mg/dL Creatinine (0.5-1.4) mg/dL Estim Creat Clear Calc Estimated GFR Random Glucose (60-115) mg/dL Calcium (8.4-10.2) mg/dL Magnesium (1.6-2.6) mg/dL Ferritin (10-250) ng/mL Total Bilirubin (0.0-1.0) mg/dL Direct Bilirubin (0.0-0.5) mg/dL AST (5-31) U/L ALT (0-31) U/L Alkaline Phosphatase (39-117) U/L Lactate Dehydrogenase (122-220) U/L Troponin I High Sens (<3.5-17.0) ng/L C-Reactive Protein (< or = 0.50) mg/dL B-Natriuretic Peptide (<100) pg/mL Total Protein (6.5-8.0) g/dL Albumin (3.5-5.0) g/dL Lipase (8-78) U/L Procalcitonin ng/mL Urine Color Urine Appearance Urine pH (5.0-8.0) Ur Specific [place] (1.005-1.025) Urine Protein (NEG-TRACE) MG/DL Urine Glucose (UA) (NEG) MG/DL Urine Ketones (NEG) MG/DL Urine Blood (NEG) Urine Nitrite (NEG) Ur Leukocyte Esterase (NEG) Urine Opiates Screen (Not Detect) Ur Barbiturates Screen (Not Detect) Ur Phencyclidine Scrn (Not Detect) Ur Amphetamines Screen (Not Detect) U Benzodiazepines Scrn (Not Detect) Urine Cocaine Screen (Not Detect) U Marijuana (THC) Screen (Not Detect) Ethyl Alcohol 388 H* mg/dL Coronavirus (PCR) (Negative) Influenza Type A (PCR) (Negative) Influenza Type B (PCR) (Negative) RSV RNA Qual (PCR) (Negative) Imaging Data CT scan of brain/CT scan of chest/CT scan of abdomen and pelvis: Attestation: I personally reviewed and interpreted this imaging study as follows: Radiologist's impression: FINDINGS: CHEST: QUALITY OF STUDY/CONTRAST BOLUS: Satisfactory. PULMONARY ARTERIES: No central or segmental pulmonary emboli. THORACIC AORTA: No aneurysm or dissection. LUNG: Mild dependent atelectasis in the lower lobes. No consolidation or pulmonary nodules. Central airways are clear. No bronchiectasis. PLEURA: No pleural effusion or pneumothorax. MEDIASTINUM: Normal heart size. No pericardial effusion. No hilar or mediastinal lymphadenopathy. No evidence of septal bowing or right heart strain. CHEST WALL/AXILLA: No axillary or internal mammary lymphadenopathy. ABDOMEN/PELVIS: LIVER, GALLBLADDER AND BILIARY TREE: Relative hypoattenuation in hepatic parenchyma is consistent with steatosis. The liver is normal in size and shape. No focal hepatic lesion or biliary ductal dilatation is present. The gallbladder is unremarkable with no evidence of radiopaque gallstones, gallbladder wall thickening, or obvious pericholecystic inflammatory changes. PANCREAS: Normal; no mass or surrounding fluid. SPLEEN: Normal size. No focal lesion. ADRENAL GLANDS: There is a 1.3 cm left adrenal nodule which measures 10 Hounsfield units on the pulmonary arterial phase images, most consistent with a lipid rich adrenal adenoma. No right renal lesions. KIDNEYS AND URETERS: The kidneys are normal in size, shape, and attenuation. No hydronephrosis, hydroureter, or calculi. GASTROINTESTINAL TRACT: Stomach, small bowel, and colon are normal in caliber. Mild apparent wall thickening of descending and rectum is likely related to underdistention. No pericolonic inflammatory changes are identified in this region. Otherwise, no bowel wall thickening or surrounding inflammatory changes. Appendix is normal. No intraperitoneal free fluid or free air. ABDOMINAL WALL: No significant hernia is appreciated. LYMPHOVASCULAR STRUCTURES: No lymphadenopathy. The aorta is unremarkable. BLADDER: Full. No focal mass or wall thickening seen. No bladder calculi. PELVIC VISCERA: Normal CT appearance of the uterus. No adnexal mass seen. OSSEOUS STRUCTURES: No acute or suspicious osseous abnormality. Anterior wedging of the T12 and L1 vertebral bodies developmental/congenital in nature. No acute fractures are identified. Moderate to severe degenerative disc disease present C6-C7 at the superior margin of the study. CT/CT abdomen pelvis w con IMPRESSION: 1. No acute findings in the chest, abdomen, and pelvis. No evidence of pulmonary emboli. 2. Hepatic steatosis. 3. A 1.3 cm lipid rich left adrenal adenoma. 4. Moderate to severe degenerative disc disease at C6-C7. VTE: negative Chest x-ray: Attestation: I personally reviewed and interpreted this imaging study as follows: Radiologist's impression: FINDINGS: Cardiac leads overlie the chest. Lungs are clear. No consolidation, pneumothorax, or pleural effusion. Cardiac and mediastinal contours are normal. Pulmonary vasculature is unremarkable. Osseous structures are unremarkable. XR/XR chest 1V IMPRESSION: No acute cardiopulmonary findings ECG Data Attestation: I personally reviewed and interpreted this ECG as follows: Interpretation: EKG NSR with ventricular rate of 70 with a normal VA interval normal QRS duration normal QT/QTC interval no acute ischemic changes and similar when compared to prior EKG on 04/23/2020 Critical Care Time Critical Care Time Critical Care Time: Yes Total Critical Care Time: 60 Attestation: I personally attest to this time spent taking care of the patient Discharge Plan Discharge Clinical Impression: Alcoholic intoxication, Hypomagnesemia, Hepatic steatosis, Adrenal adenoma, Elevated troponin, Depression, Anxiety Prescriptions: No Action naltrexone 50 mg Tablet 50 mg PO DAILY RF: 0 sertraline 50 mg Tablet 50 mg PO DAILY RF: 0
[2020-05-02 15:11] VITALS: BP 137/82; PULSE 74; RESP 20; O2SAT 100
--- NOTE | 2020-05-02 15:12 | PC.NURSE ---
PT IS AMBULATING TO THE BATHROOM, SWAYING SLIGHTLY THOUGH INDEPENDENT. ANXIOUS, TEARFUL. REQUESTING FOOD, AWAITING CT RESULTS.
[2020-05-02] MEDS: iohexoL 350 MG/ML 100 ML INFUS..BTL IV (15:13)
[2020-05-02] MEDS: 0.9 % Sodium Chloride 1,000 ML 999 ML IVCONT (16:27)
--- NOTE | 2020-05-02 17:00 | PC.NURSE ---
pt sleeping at this time
[2020-05-02 18:11] LABS: Troponin-I High Sensitivity 7.3 ng/L (<3.5-17.0)
--- NOTE | 2020-05-02 18:31 | MHC.RECOVSUP ---
? Reason for consult Detox o Current location: ED2 o Identified substance use concern: Alcohol - Seeking ATS (detox) - Support ? Intervention: o ATS bed search started 6:05PM and ended at 6:30. No Beds Available till the Morning. o Community resources provided o Harm reduction discussion ? Additional information: Patient is seeking Detox. Unfortunately There are no Bed at this time, till the morning.
--- NOTE | 2020-05-02 19:25 | PC.NURSE ---
pt currently denying SI/HI. refusing detox, refusing vs at this time, determined to leave. reports having therapist available to her, and would like to go to work tomorrow AM. encouraged to seek detox services in a safe manner, and reminded of risks of ETOH withdrawal. pt understood.
--- NOTE | 2020-05-02 19:27 | PC.NURSE ---
PT HAS EATEN A SANDWICH AND HAS BEEN DRINKING CHANDRIKA YADIRA AND WATER.
== END 2020-05-02 19:28 | disposition home or self-care (01) ==
PROVIDERS: Physician Assistant Medical; Emergency Provider Emergency Medicine
DX: F10.129 Alcohol abuse with intoxication, unspecified (principal); Y90.8 Blood alcohol level of 240 mg/100 ml or more; E83.42 Hypomagnesemia; K76.0 Fatty (change of) liver, not elsewhere classified; D35.00 Benign neoplasm of unspecified adrenal gland; R41.82 Altered mental status, unspecified; R10.11 Right upper quadrant pain; R77.8 Other specified abnormalities of plasma proteins; F33.1 Major depressive disorder, recurrent, moderate; F41.1 Generalized anxiety disorder; F43.0 Acute stress reaction; Z20.822 Contact with and (suspected) exposure to COVID-19; Z79.899 Other long term (current) drug therapy; F17.200 Nicotine dependence, unspecified, uncomplicated; Z71.6 Tobacco abuse counseling
CPT/HCPCS: 0241U; 36415; 70450; 71045; 71275; 74177; 80048; 80076; 80307; 80320; 81003; 82728; 83615; 83690; 83735; 83880; 84145; 84484; 85025; 85379; 85610; 85730; 86140; 93005; 96361; 96365; 96366; 96375; 96376; 99284; 99291; J2060; J3475; Q9967

== ENCOUNTER 2020-11-01 16:14 | Emergency (ER) | payer OTHER, SELFPAY ==
[2020-11-01 16:22] VITALS: BP 136/98; PULSE 95; RESP 16; TEMP 36.7; O2SAT 99; BMI 21.9
[2020-11-01 16:49] LABS: MANUAL DIFF FLAG NO
[2020-11-01 16:51] LABS: Basophils Absolute Auto 0.1 X10*3/uL (0.0-0.2); Basophils Percent Auto 1.4 % (0-2); Eosinophils Absolute Auto 0.1 X10*3/uL (0.0-0.4); Hematocrit 40.1 % (37-47); Hemoglobin 13.9 g/dl (12.0-16.0); Imm Gran Abs Auto 0.02 X10*3/uL (0.00-0.03); Imm Gran Pct Auto 0.3 % (0.0-0.4); Lymphocytes Absolute Auto 2.1 X10*3/uL (1.2-4.9); Lymphocytes Percent Auto 35.3 % (20-40); Mean Corpuscular HGB Conc 34.7 g/dl (31.0-35.0); Mean Corpuscular Hemoglobin 32.3 pg (27.0-33.0); Mean Corpuscular Volume 93.3 fL (80-98); Mean Platelet Volume 9.6 fL (9.4-12.3); Monocytes Absolute Auto 0.4 X10*3/uL (0.1-1.2); Monocytes Percent Auto 6.1 % (2-11); Neutrophils Absolute Auto 3.2 X10*3/uL (2.0-8.3); Neutrophils Percent Auto 54.9 % (45-73); Platelet Count 217 X10*3/uL (160-400); Red Cell Distribution Width 14.4 % (11.0-16.0); White Blood Count 5.9 X10*3/uL (4.8-10.8)
--- NOTE | 2020-11-01 16:52 | ED_ITS ---
HPI - General Adult General Chief complaint: ETOH/Substance Use Stated complaint: crisis Time Seen by Provider: 11/01/20 16:41 Source: patient Mode of arrival: ambulatory Limitations: no limitations History of Present Illness HPI narrative: Patient presents to ED oxygen for detox. Patient wants to stop drinking. Patient admits to history of alcohol abuse. Patient denies any recent trauma or any physical complaints. Patient states last drink was couple hours ago. Related Data Home Medications Medication Instructions Recorded Confirmed naltrexone 50 mg tablet 50 mg PO DAILY 04/22/20 04/22/20 sertraline 50 mg tablet 50 mg PO DAILY 04/22/20 04/22/20 Allergies Allergy/AdvReac Type Severity Reaction Status Date / Time Penicillins [PENICILLINS] Allergy Intermediate HIVES Verified 05/02/20 13:38 Review of Systems Review of Systems: Yes all other systems are reviewed and are negative Constitutional: Constitutional: Reports as per HPI and Reports no additional constitutional complaints Eyes: Eyes: Reports as per HPI and Reports no additional eye complaints ENT: Reports system reviewed and no additional complaints, except as documented Cardiovascular: Cardiovascular: Reports as per HPI and Reports no additional cardiovascular complaints Respiratory: Respiratory: Reports as per HPI and Reports no additional respiratory complaints Gastrointestinal: Gastrointestinal: Reports as per HPI and Reports no additional gastrointestinal complaints Genitourinary: Genitourinary: Reports no additional female genitourinary complaints and Reports as per HPI Musculoskeletal: Musculoskeletal: Reports no additional musculoskeletal complaints and Reports as per HPI Integumentary/Breasts: Skin/Breast: Reports system reviewed and no additional complaints, except as docu and Reports as per HPI Neurologic: Reports system reviewed and no additional complaints, except as documented and Reports as per HPI Psychiatric: Psychiatric: Reports no additional psychiatric complaints and Reports as per HPI Endocrine: Endocrine: Reports no additional endocrine complaints and Reports as per HPI PMFSH Past Medical History Medical History H/O alcohol abuse Social History Social History Alcohol intake: current Alcohol type: hard liquor Smoked in Last 30 Days: No Use of substances other than those prescribed or required for medical reasons: No Advance Directives: No Advance Directives Information Provided: No Patient : No Physical Exam Vital Signs: Vital Signs: Last Vital Signs Temp 98.0 F 11/01/20 16:22 Pulse 95 11/01/20 16:22 Resp 16 11/01/20 16:22 BP 136/98 H 11/01/20 16:22 Pulse Ox 99 11/01/20 16:22 Body Mass Index 21.9 Const: General: cooperative, healthy appearing, comfortable, no acute distress, well developed, alert, awake and Physically active Orientation/consciousness: patient oriented x3 HENMT: Head: Yes normal to inspection, Yes No palpable skull fracture present, Yes normocephalic, Yes atraumatic and No abrasion Eyes: General: appearance normal, both eyes and all related structures Neck: Neck: Yes normal visual inspection, Yes full ROM, Yes no lympha denopathy, Yes no meningeal signs, Yes trachea midline, Yes supple and No tender Chest: Chest palpation & inspection: normal inspection of the chest and normal palpation of entire chest wall Resp: Effort & Inspection: normal respiratory effort and able to speak in complete sentences Auscultation: clear to auscultation bilaterally Cardio: Jugular venous distension: no JVD Heart sounds: S1 normal heart sound present and S2 normal heart sound present GI: Inspection: Yes normal to inspection and No abdominal wall ecchymosis Palpation (GI): Soft to palpation, not firm, nontender, no guarding and not r igid : General: No CVA tenderness and Yes no CVA tenderness Back/Spine/Pelvis: Back: no CVA tenderness, No CVA tenderness and No back tenderness Skin: General skin exam: no rashes or lesions noted and elasticity normal Neuro: General: patient oriented x3, gait normal, tone normal and no meningeal signs Cranial nerves: Yes CN's II-XII intact bilaterally Extrem: General: Yes normal to inspection and Yes full ROM Psych: Appearance: grossly normal, well kempt and not disheveled Course Course Course Narrative: Patient will have medical evaluation and be evaluated by cross country and track and field coach Reevaluation(s) Reevaluation #1: defensive secondary coach Amor evaluated patient and patient had admission phone interview with detox facility and has a bed waiting for her in 01:00 hour. As per defensive secondary coach Ryan tpatient does not have to wait for alcohol level to be below 200 due to patient will be provided transportation home by cab by him and then patient will be picked up from home by the detox facility. Patient labs are normal. Patient alert oriented x3 with normal gait. Time: 17:45 Medical Decision Making MDM Narrative Medical decision making narrative: Alcohol abuse Lab Data Result diagrams: 11/01/20 16:40 11/01/20 16:40 Labs: Lab Results 11/01/20 11/01/20 11/01/20 Range/Units 16:40 16:40 16:40 WBC 5.9 (4.8-10.8) X10*3/uL RBC 4.30 (4.20-5.50) X10*6/uL Hgb 13.9 (12.0-16.0) g/dl Hct 40.1 (37-47) % MCV 93.3 (80-98) fL MCH 32.3 (27.0-33.0) pg MCHC 34.7 (31.0-35.0) g/dl RDW 14.4 (11.0-16.0) % Plt Count 217 (160-400) X10*3/uL MPV 9.6 (9.4-12.3) fL Immature Gran % (Auto) 0.3 (0.0-0.4) % Neut % (Auto) 54.9 (45-73) % Lymph % (Auto) 35.3 (20-40) % [place] % (Auto) 6.1 (2-11) % Eos % (Auto) 2.0 (0-4) % Baso % (Auto) 1.4 (0-2) % Lymph # (Auto) 2.1 (1.2-4.9) X10*3/uL [place] # (Auto) 0.4 (0.1-1.2) X10*3/uL Eos # (Auto) 0.1 (0.0-0.4) X10*3/uL Baso # (Auto) 0.1 (0.0-0.2) X10*3/uL Abs Immat Gran (auto) 0.02 (0.00-0.03) X10*3/uL Absolute Neuts (auto) 3.2 (2.0-8.3) X10*3/uL Absolute Nucleated RBC 0.000 (0.0-0.012) X10*3/uL Nucleated RBC % (auto) 0.0 (0.0-0.2) /100WBC Sodium 144 (135-145) mmol/L Potassium 4.0 (3.3-5.1) mmol/L Chloride 98 (96-108) mmol/L Carbon Dioxide 28 (22-29) mmol/L Anion Gap 22 H (12-20) BUN 9 (9-16) mg/dL Creatinine 0.79 (0.5-1.4) mg/dL Estim Creat Clear Calc 59.1 Estimated GFR > 60 Random Glucose 116 H D (60-115) mg/dL Calcium 9.7 D (8.4-10.2) mg/dL Ethyl Alcohol 372 H* mg/dL Discharge Plan Discharge Clinical Impression: Alcohol abuse, H/O alcohol abuse Patient Disposition: Home, Self-Care Instructions: Abuse of Alcohol (ED) Additional Instructions: You were accepted by detox facility. He will be given transportation home. Please be compliant with the detox facility and allowed them to bring you to the facility from house. Return to the ED for any suicidal/homicidal ideation, auditory/visual hallucinations, any physical complaints, or any other concerning symptoms. Prescriptions: No Action naltrexone 50 mg Tablet 50 mg PO DAILY RF: 0 sertraline 50 mg Tablet 50 mg PO DAILY RF: 0 Interventions: ED Discharge Assessment Last Done: 11/01/20 17:51 Discharge Date/Time: 11/01/20 17:52 Print Language: Bahraini
--- NOTE | 2020-11-01 17:04 | PC.NURSE ---
pt on phone with detox facilities per fina
[2020-11-01 17:26] LABS: Ethanol 372 mg/dL
[2020-11-01 17:27] LABS: Blood Urea Nitrogen 9 mg/dL (9-16); Calcium 9.7 mg/dL (8.4-10.2); Creatinine Clr Calc Pharmacy 59.1; Estimated Glomerular Filt Rate > 60; Glucose Random 116 mg/dL (60-115)
--- NOTE | 2020-11-01 17:35 | PC.NURSE ---
pt has a bed in [facility] and will be picked up at her home
--- NOTE | 2020-11-01 17:35 | MHC.RECOVSUP ---
Recovery Support note: Patient is a 55 year old Mauritian speaking male who presented to [facility] ED seeking detox. This telegraphic typewriter mechanic met with patient to discuss her alcohol use and treatment options. Patient reports I have to get help and that she has been to numerous detox facilities in the past. Patient reports she is willing to go anywhere and reiterates that she needs to stop drinking and that she needs help. Patient completed intake with [facility] and has secured a bed at the [facility]. Patient reports that they will pick her up at her apartment in an hour and a half. Patient is comfortable with this plan. Discussed case with patient's RN and ED provider. This telegraphic typewriter mechanic will arrange transportation for patient home. This telegraphic typewriter mechanic spoke with [facility] and they confirmed that patient is scheduled for pickup at 7PM.
[2020-11-01 17:37] LABS: Anion Gap 22 (12-20); Carbon Dioxide 28 mmol/L (22-29); Chloride 98 mmol/L (96-108); Sodium 144 mmol/L (135-145)
== END 2020-11-01 17:52 | disposition home or self-care (01) ==
PROVIDERS: Emergency Provider Emergency Medicine; PCP Family Medicine
DX: F10.10 Alcohol abuse, uncomplicated (principal); Y90.8 Blood alcohol level of 240 mg/100 ml or more
CPT/HCPCS: 36415; 80048; 82077; 85025; 99283; 99284

== ENCOUNTER 2020-11-14 13:40 | Emergency (ER) | payer OTHER, SELFPAY ==
[2020-11-14 13:52] VITALS: BP 140/90; BP 160/96; PULSE 82; PULSE 88; RESP 18; TEMP 37.3; O2SAT 99; BMI 23.3
--- NOTE | 2020-11-14 14:06 | ECG_ITS ---
Test Reason : ETOH WITHDRAWAL Blood Pressure : / mmHG Vent. Rate : 093 BPM Atrial Rate : 093 BPM P-R Int : 128 ms QRS Dur : 074 ms QT Int : 370 ms P-R-T Axes : 049 059 048 degrees QTc Int : 460 ms Sinus rhythm with Premature atrial complexes Nonspecific T wave abnormality Abnormal ECG When compared with ECG of 02-MAY-2020 13:41, Premature atrial complexes are now Present Nonspecific T wave abnormality now evident in Inferior leads Nonspecific T wave abnormality now evident in Anterior leads Referred By: Yahir Doyle Electronically Signed By:JACINTO ALMARAZ
[2020-11-14] MEDS: 0.9 % Sodium Chloride 1,000 ML 999 ML IV (14:14)
[2020-11-14] MEDS: LORazepam 2 MG/ML VIAL IVPUSH (14:14)
--- NOTE | 2020-11-14 14:22 | ED_ITS ---
HPI - General Adult General Chief complaint: ETOH/Substance Use Stated complaint: tremors - withdrawl Time Seen by Provider: 11/14/20 16:17 Source: patient Mode of arrival: ambulatory Limitations: no limitations History of Present Illness HPI narrative: Patient presents to ED for alcohol withdrawal. Patient states she stopped drinking alcohol for 24 hours as she was trying to stick stop drinking alcohol cold turkey. Patient will like to going to a detox program. Patient is not suicidal or homicidal. Related Data Home Medications Medication Instructions Recorded Confirmed naltrexone 50 mg tablet 50 mg PO DAILY 04/22/20 04/22/20 sertraline 50 mg tablet 50 mg PO DAILY 04/22/20 04/22/20 Allergies Allergy/AdvReac Type Severity Reaction Status Date / Time Penicillins [PENICILLINS] Allergy Intermediate HIVES Verified 05/02/20 13:38 Review of Systems Review of Systems: Yes all other systems are reviewed and are negative Constitutional: Constitutional: Reports as per HPI and Reports no additional constitutional complaints Eyes: Eyes: Reports as per HPI and Reports no additional eye complaints ENT: Reports system reviewed and no additional complaints, except as documented and Reports as per HPI Cardiovascular: Cardiovascular: Reports as per HPI and Reports no additional cardiovascular complaints Respiratory: Respiratory: Reports as per HPI and Reports no additional respiratory complaints Gastrointestinal: Gastrointestinal: Reports as per HPI and Reports no additional gastrointestinal complaints Genitourinary: Genitourinary: Reports no additional female genitourinary complaints and Reports as per HPI Musculoskeletal: Musculoskeletal: Reports no additional musculoskeletal complaints and Reports as per HPI Neurologic: Reports system reviewed and no additional complaints, except as documented and Reports as per HPI Comments: Tremors PMFSH Past Medical History Medical History H/O alcohol abuse Social History Social History Alcohol intake: current Alcohol intake frequency: 3 or more drinks per day Alcohol type: hard liquor Patient Tobacco Use Status: Current everyday Tobacco user Use of substances other than those prescribed or required for medical reasons: No Advance Directives: No Advance Directives Information Provided: Yes Physical Exam Vital Signs: Vital Signs: Last Vital Signs Temp 99.1 F 11/14/20 15:36 Pulse 90 11/14/20 15:36 Resp 15 11/14/20 15:36 BP 132/77 11/14/20 15:36 Pulse Ox 95 11/14/20 15:36 Body Mass Index 23.3 Const: General: cooperative, healthy appearing, comfortable, no acute distress, well developed, alert, awake and Physically active Orientati on/consciousness: patient oriented x3 HENMT: Head: Yes normal to inspection, Yes No palpable skull fracture present, Yes normocephalic and Yes atraumatic Eyes: General: appearance normal, both eyes and all related structures Neck: Neck: Yes normal visual inspection, Yes full ROM, Yes no lymphadenopathy, Yes no meningeal signs, Yes trachea midline, Yes supple and No tender Chest: Chest palpation & inspection: normal inspection of the chest and normal palpation of entire chest wall Resp: Effort & Inspection: normal respiratory effort and able to speak in complete sentences Cardio: Jugular venous distension: no JVD Heart sounds: S1 normal heart sound present and S2 normal heart sound present GI: Inspection: Yes normal to inspection and No abdominal wall ecchymosis Palpation (GI): Soft to palpation, not firm, nontender, no guarding and not rigid : General: No CVA tenderness and Yes no CVA tenderness Back/Spine/Pelvis: Back: no CVA tenderness, No CVA tenderness and No back tenderness Skin: General skin exam: no rashes or lesions noted and elasticity normal Neuro: Other: Positive for tremors due to alcohol withdrawal General: patient oriented x3, no meningeal signs and CN's II-XI intact bilaterally Cranial nerves: Yes CN's II-XII intact bilaterally Extrem: Other: Positive for tremors General: Yes normal to inspection and Yes full ROM Psych: Appearance: grossly normal, well kempt and not disheveled Course Course Course Narrative: Patient EKG and basic labs. Ativan and fluid ordered. Reevaluation(s) Reevaluation #1: Patient evaluated by asset recovery specialist Amor. Patient has a bed for detox program. They will pick up operator at 08:00 o'clock pm from her home. Patient magnesium and potassium level was low. Patient have magnesium and potassium replenished. The patient will be discharged. Patient no longer has tremors. Patient states she feels better. Patient presently has no abdominal pain. Patient is A0x3. Patient will be discharged after receiving magnesium and potassium. Time: 17:38 Medical Decision Making [facility] Narrative Medical decision making narrative: Alcohol withdrawal Lab Data Result diagrams: 11/14/20 14:25 11/14/20 14:25 Labs: Lab Results 11/14/20 11/14/20 11/14/20 Range/Units 14:25 14:25 14:25 WBC 11.0 H (4.8-10.8) X10*3/uL RBC 3.44 L (4.20-5.50) X10*6/uL Hgb 11.5 L (12.0-16.0) g/dl Hct 32.2 L (37-47) % MCV 93.6 (80-98) fL MCH 33.4 H (27.0-33.0) pg MCHC 35.7 H (31.0-35.0) g/dl RDW 14.3 (11.0-16.0) % Plt Count 246 (160-400) X10*3/uL MPV 8.9 L (9.4-12.3) fL Immature Gran % (Auto) 0.2 (0.0-0.4) % Neut % (Auto) 79.5 H (45-73) % Lymph % (Auto) 13.5 L (20-40) % [place] % (Auto) 5.7 (2-11) % Eos % (Auto) 0.3 (0-4) % Baso % (Auto) 0.8 (0-2) % Lymph # (Auto) 1.5 (1.2-4.9) X10*3/uL [place] # (Auto) 0.6 (0.1-1.2) X10*3/uL Eos # (Auto) 0.0 (0.0-0.4) X10*3/uL Baso # (Auto) 0.1 (0.0-0.2) X10*3/uL Abs Immat Gran (auto) 0.02 (0.00-0.03) X10*3/uL Absolute Neuts (auto) 8.7 H (2.0-8.3) X10*3/uL Absolute Nucleated RBC 0.000 (0.0-0.012) X10*3/uL Nucleated RBC % (auto) 0.0 (0.0-0.2) /100WBC Sodium 135 (135-145) mmol/L Potassium 3.2 L (3.3-5.1) mmol/L Chloride 98 (96-108) mmol/L Carbon Dioxide 22 (22-29) mmol/L Anion Gap 18 (12-20) BUN 9 (9-16) mg/dL Creatinine 0.70 (0.5-1.4) mg/dL Estim Creat Clear Calc 66.7 Estimated GFR > 60 Random Glucose 82 (60-115) mg/dL Calcium 8.3 L D (8.4-10.2) mg/dL Magnesium 1.0 L* (1.6-2.6) mg/dL Total Bilirubin 0.5 (0.0-1.0) mg/dL Direct Bilirubin 0.2 (0.0-0.5) mg/dL AST 28 D (5-31) U/L ALT 32 H (0-31) U/L Alkaline Phosphatase 78 (39-117) U/L Total Protein 6.7 (6.5-8.0) g/dL Albumin 4.2 (3.5-5.0) g/dL Lipase 82 H (8-78) U/L Ethyl Alcohol < 10 mg/dL ECG Data Interpretation: Sinus rhythm. Ventricular rate 93. Pr interval 128. QRS 74. QTC 460. Discharge Plan Discharge Clinical Impression: Alcohol withdrawal syndrome Patient Disposition: Home, Self-Care Instructions: Alcohol Withdrawal (ED) Additional Instructions: Please follow-up with detox program where you have a bed. Return to the ED immediately for any suicidal/homicidal ideation, tremors, fever, chills, altered mental status, chest pain, shortness of breath, abdominal pain, auditory/visual hallucinations, or any other concerning symptoms. Prescriptions: No Action naltrexone 50 mg Tablet 50 mg PO DAILY RF: 0 sertraline 50 mg Tablet 50 mg PO DAILY RF: 0 Print Language: Macanese
[2020-11-14 14:30] LABS: Basophils Absolute Auto 0.1 X10*3/uL (0.0-0.2); Basophils Percent Auto 0.8 % (0-2); Eosinophils Percent Auto 0.3 % (0-4); Hematocrit 32.2 % (37-47); Hemoglobin 11.5 g/dl (12.0-16.0); Imm Gran Abs Auto 0.02 X10*3/uL (0.00-0.03); Imm Gran Pct Auto 0.2 % (0.0-0.4); Lymphocytes Absolute Auto 1.5 X10*3/uL (1.2-4.9); Lymphocytes Percent Auto 13.5 % (20-40); MANUAL DIFF FLAG NO; Mean Corpuscular HGB Conc 35.7 g/dl (31.0-35.0); Mean Corpuscular Hemoglobin 33.4 pg (27.0-33.0); Mean Corpuscular Volume 93.6 fL (80-98); Mean Platelet Volume 8.9 fL (9.4-12.3); Monocytes Absolute Auto 0.6 X10*3/uL (0.1-1.2); Monocytes Percent Auto 5.7 % (2-11); Neutrophils Absolute Auto 8.7 X10*3/uL (2.0-8.3); Neutrophils Percent Auto 79.5 % (45-73); Platelet Count 246 X10*3/uL (160-400); Red Blood Count 3.44 X10*6/uL (4.20-5.50); Red Cell Distribution Width 14.3 % (11.0-16.0)
[2020-11-14 14:54] LABS: Ethanol < 10 mg/dL
[2020-11-14 14:58] LABS: Alanine Aminotransferase 32 U/L (0-31); Albumin Level 4.2 g/dL (3.5-5.0); Alkaline Phosphatase 78 U/L (39-117); Anion Gap 18 (12-20); Aspartate Amino Transferase 28 U/L (5-31); Bilirubin Direct 0.2 mg/dL (0.0-0.5); Bilirubin Total 0.5 mg/dL (0.0-1.0); Blood Urea Nitrogen 9 mg/dL (9-16); Calcium 8.3 mg/dL (8.4-10.2); Carbon Dioxide 22 mmol/L (22-29); Chloride 98 mmol/L (96-108); Creatinine Clr Calc Pharmacy 66.7; Estimated Glomerular Filt Rate > 60; Glucose Random 82 mg/dL (60-115); Lipase 82 U/L (8-78); Potassium 3.2 mmol/L (3.3-5.1); Sodium 135 mmol/L (135-145); Total Protein 6.7 g/dL (6.5-8.0)
[2020-11-14 15:09] VITALS: BP 132/81; PULSE 95; RESP 20; O2SAT 95
--- NOTE | 2020-11-14 15:13 | PC.NURSE ---
CIWA 8, PT REPORTS FEELING SIGNIFICANTLY IMPROVED WITH ATIVAN. SEEKING DETOX. A &OX3, IN NAD AT THIS TIME. DENIES SI/HI.
[2020-11-14 15:36] VITALS: BP 132/77; PULSE 90; RESP 15; TEMP 37.3; O2SAT 95
[2020-11-14] MEDS: Potassium Chloride Packet 20 MEQ PACKET 40 MEQ PO (16:58)
[2020-11-14] MEDS: Magnesium Sulfate/H2O 2 GM/50 ML PIGGYBACK IV (16:58)
--- NOTE | 2020-11-14 17:35 | MHC.RECOVSUP ---
Recovery Support note: Patient is a 55 year old Uruguayan speaking female who presented to [facility] ED due to withdrawal symptoms. Patient is known to this field underwriter from a previous consultation on 11/01/20. This field underwriter met with patient to discuss her alcohol use and treatment options. Patient reports she made it to [facility] on 11/01/20 and that she started drinking again after discharge. Patient reports that she found it to be a good facility and she would be interested in going back. This field underwriter conducted an ATS bedsearch. [facility] completed intake with patient and reports that they will pick patient up at her home at 2000 to bring her to the [place] facility. Discussed case with patient's RN and ED provider.
--- NOTE | 2020-11-14 18:05 | MHC.RECOVSUP ---
[employer] scheduled for 1844 and they will contact patient directly when they are here. Patient provided with [employer]ou[employer]. RN aware.
[2020-11-14 18:30] VITALS: BP 130/76; PULSE 90; RESP 15; TEMP 36.3; O2SAT 95
== END 2020-11-14 19:00 | disposition home or self-care (01) ==
PROVIDERS: Physician Assistant; Emergency Provider Emergency Medicine; PCP Family Medicine
DX: F10.239 Alcohol dependence with withdrawal, unspecified (principal); Y90.0 Blood alcohol level of less than 20 mg/100 ml; Z71.41 Alcohol abuse counseling and surveillance of alcoholic; Z79.899 Other long term (current) drug therapy; F17.200 Nicotine dependence, unspecified, uncomplicated; Z71.6 Tobacco abuse counseling
CPT/HCPCS: 36415; 80053; 82077; 82248; 83690; 83735; 85025; 93005; 96365; 96366; 96375; 99284; 99285; J2060; J3475

== ENCOUNTER 2020-12-23 09:44 | Emergency (ER) | payer OTHER, SELFPAY ==
--- NOTE | 2020-12-23 09:48 | ED_ITS ---
HPI - Alcohol General Chief Complaint: ETOH/Substance Use Stated Complaint: ETOH INTOXICATION Time Seen by Provider: 12/23/20 09:47 Source: patient and EMS Mode of arrival: EMS Limitations: no limitations History of Present Illness MD complaint: alcohol intoxication Last drink: Hours (ago) Chronic alcohol use: Yes Previous visits for alcohol intoxication: Yes Recent trauma: No Associated symptoms: depression Treatments prior to arrival: none Related Data Home Medications Medication Instructions Recorded Confirmed naltrexone 50 mg tablet 50 mg PO DAILY 04/22/20 04/22/20 sertraline 50 mg tablet 50 mg PO DAILY 04/22/20 04/22/20 Allergies Allergy/AdvReac Type Severity Reaction Status Date / Time Penicillins [PENICILLINS] Allergy Intermediate HIVES Verified 05/02/20 13:38 Review of Systems Review of Systems: Constitutional : No Fever, No Chills ENT/Mouth : No Ear Pain, No Nasal Congestion, No sore throat Eyes: No Eye Pain, No Swelling, No Redness Cardiovascular : No Chest Pain, No SOB Respiratory : No Cough, No Sputum, No Dyspnea Gastrointestinal : No Nausea, No Vomiting, No Diarrhea, No Hematochezia, No Melena Genitourinary : No Dysuria, No Urinary Frequency, No Hematuria Musculoskeletal : No Myalgias Skin : No Skin Lesions, No rash Neuro : No Weakness, No Numbness, No Paresthesias, No Dizziness, No Headache Psych : positive Anxiety, positive Depression, no SI/HI Heme/Lymph: No Lymphadenopathy Endocrine : No Polyuria, No Polydipsia All other systems reviewed and are negative [facility] Past Medical History Attestation statement: The following information was validated with the patient. Medical History H/O alcohol abuse Social History Social History Alcohol intake: current Alcohol intake frequency: 3 or more drinks per day Alcohol type: hard liquor Patient Tobacco Use Status: Current everyday Tobacco user Advance Directives: No Advance Directives Information Provided: Yes Patient : No Physical Exam Vital Signs: Vital Signs: Last Vital Signs Temp 98.8 F 12/23/20 10:25 Pulse 83 12/23/20 10:25 Resp 16 12/23/20 10:25 BP 133/92 H 12/23/20 10:25 Pulse Ox 96 12/23/20 10:25 Body Mass Index 25.8 Appearance: Alert. Oriented X3. No acute distress. ETOH odor Eyes: Pupils equal, round and reactive to light. ENT: Pharynx normal. Neck: Normal inspection. Neck supple. CVS: Normal heart rate and rhythm. Pulses normal. Respiratory: No respiratory distress. Breath sounds normal. Abdomen: Soft and nontender. Skin: Skin warm and dry. Normal skin color. Normal skin turgor. Extremities: No lower extremity edema. No calf ttp Neuro: Oriented X 3. No motor deficit. No sensory deficit. Course Course Course Narrative: signed out pending possible detox MDM - Alcohol MDM Narrative Medical decision making narrative: 55 yo female with depression here with ETOH abuse no SI - will obtain screening labs, detox consult, PO vitamins - dispo per results and findings. Lab Data Result diagrams: 12/23/20 10:35 12/23/20 10:35 Labs: Lab Results 12/23/20 12/23/20 12/23/20 Range/Units 10:33 10:35 10:35 WBC 5.8 (4.8-10.8) X10*3/uL RBC 4.25 D (4.20-5.50) X10*6/uL Hgb 13.5 (12.0-16.0) g/dl Hct 39.5 D (37-47) % MCV 92.9 (80-98) fL MCH 31.8 (27.0-33.0) pg MCHC 34.2 (31.0-35.0) g/dl RDW 14.2 (11.0-16.0) % Plt Count 296 (160-400) X10*3/uL MPV 9.3 L (9.4-12.3) fL Immature Gran % (Auto) 0.2 (0.0-0.4) % Neut % (Auto) 36.6 L (45-73) % Lymph % (Auto) 51.3 H (20-40) % [place] % (Auto) 7.8 (2-11) % Eos % (Auto) 2.9 (0-4) % Baso % (Auto) 1.2 (0-2) % Lymph # (Auto) 3.0 (1.2-4.9) X10*3/uL [place] # (Auto) 0.5 (0.1-1.2) X10*3/uL Eos # (Auto) 0.2 (0.0-0.4) X10*3/uL Baso # (Auto) 0.1 (0.0-0.2) X10*3/uL Abs Immat Gran (auto) 0.01 (0.00-0.03) X10*3/uL Absolute Neuts (auto) 2.1 (2.0-8.3) X10*3/uL Absolute Nucleated RBC 0.000 (0.0-0.012) X10*3/uL Nucleated RBC % (auto) 0.0 (0.0-0.2) /100WBC Sodium 145 (135-145) mmol/L Potassium 4.1 D (3.3-5.1) mmol/L Chloride 106 (96-108) mmol/L Carbon Dioxide 29 (22-29) mmol/L Anion Gap 14 (12-20) BUN 12 (9-16) mg/dL Creatinine 0.79 (0.5-1.4) mg/dL Estim Creat Clear Calc 66.6 Estimated GFR > 60 Random Glucose 90 (60-115) mg/dL Calcium 9.4 D (8.4-10.2) mg/dL Magnesium 1.8 (1.6-2.6) mg/dL Total Bilirubin 0.2 (0.0-1.0) mg/dL Direct Bilirubin < 0.2 (0.0-0.5) mg/dL AST 31 (5-31) U/L ALT 28 (0-31) U/L Alkaline Phosphatase 95 D (39-117) U/L Total Protein 7.6 (6.5-8.0) g/dL Albumin 4.4 (3.5-5.0) g/dL Urine Opiates Screen (Not Detect) Urine Fentanyl Screen (Not Detect) Ur Barbiturates Screen (Not Detect) Ur Phencyclidine Scrn (Not Detect) Ur Amphetamines Screen (Not Detect) U Benzodiazepines Scrn (Not Detect) Urine Cocaine Screen (Not Detect) U Marijuana (THC) Screen (Not Detect) Ethyl Alcohol mg/dL COVID-19 ([facility]) Negative (Negative) COVID-19 Clin Com See Note 12/23/20 12/23/20 Range/Units 10:35 Unknown WBC (4.8-10.8) X10*3/uL RBC (4.20-5.50) X10*6/uL Hgb (12.0-16.0) g/dl Hct (37-47) % MCV (80-98) fL MCH (27.0-33.0) pg MCHC (31.0-35.0) g/dl RDW (11.0-16.0) % Plt Count (160-400) X10*3/uL MPV (9.4-12.3) fL Immature Gran % (Auto) (0.0-0.4) % Neut % (Auto) (45-73) % Lymph % (Auto) (20-40) % [place] % (Auto) (2-11) % Eos % (Auto) (0-4) % Baso % (Auto) (0-2) % Lymph # (Auto) (1.2-4.9) X10*3/uL [place] # (Auto) (0.1-1.2) X10*3/uL Eos # (Auto) (0.0-0.4) X10*3/uL Baso # (Auto) (0.0-0.2) X10*3/uL Abs Immat Gran (auto) (0.00-0.03) X10*3/uL Absolute Neuts (auto) (2.0-8.3) X10*3/uL Absolute Nucleated RBC (0.0-0.012) X10*3/uL Nucleated RBC % (auto) (0.0-0.2) /100WBC Sodium (135-145) mmol/L Potassium (3.3-5.1) mmol/L Chloride (96-108) mmol/L Carbon Dioxide (22-29) mmol/L Anion Gap (12-20) BUN (9-16) mg/dL Creatinine (0.5-1.4) mg/dL Estim Creat Clear Calc Estimated GFR Random Glucose (60-115) mg/dL Calcium (8.4-10.2) mg/dL Magnesium (1.6-2.6) mg/dL Total Bilirubin (0.0-1.0) mg/dL Direct Bilirubin (0.0-0.5) mg/dL AST (5-31) U/L ALT (0-31) U/L Alkaline Phosphatase (39-117) U/L Total Protein (6.5-8.0) g/dL Albumin (3.5-5.0) g/dL Urine Opiates Screen Not Detected (Not Detect) Urine Fentanyl Screen Not Detected (Not Detect) Ur Barbiturates Screen Not Detected (Not Detect) Ur Phencyclidine Scrn Not Detected (Not Detect) Ur Amphetamines Screen Not Detected (Not Detect) U Benzodiazepines Scrn Not Detected (Not Detect) Urine Cocaine Screen Not Detected (Not Detect) U Marijuana (THC) Screen Not Detected (Not Detect) Ethyl Alcohol 329 H* mg/dL COVID-19 ([facility]) (Negative) COVID-19 Clin Com Discharge Plan Discharge Clinical Impression: Alcoholism, Depression Instructions: Depression (ED), Alcohol Use Disorder (ED) Additional Instructions: return to ED for any worsening symptoms or concerns Prescriptions: No Action naltrexone 50 mg Tablet 50 mg PO DAILY RF: 0 sertraline 50 mg Tablet 50 mg PO DAILY RF: 0
[2020-12-23 10:25] VITALS: BP 120/80; BP 133/92; PULSE 82; PULSE 83; RESP 16; TEMP 37.1; O2SAT 96; O2SAT 98; BMI 25.8
[2020-12-23] MEDS: Thiamine HCL 100 MG TABLET PO (10:38)
[2020-12-23] MEDS: Folic Acid 1 MG TABLET PO (10:38)
[2020-12-23 10:42] LABS: MANUAL DIFF FLAG NO
[2020-12-23 10:45] LABS: Basophils Absolute Auto 0.1 X10*3/uL (0.0-0.2); Basophils Percent Auto 1.2 % (0-2); Eosinophils Absolute Auto 0.2 X10*3/uL (0.0-0.4); Eosinophils Percent Auto 2.9 % (0-4); Hematocrit 39.5 % (37-47); Hemoglobin 13.5 g/dl (12.0-16.0); Imm Gran Abs Auto 0.01 X10*3/uL (0.00-0.03); Imm Gran Pct Auto 0.2 % (0.0-0.4); Lymphocytes Percent Auto 51.3 % (20-40); Mean Corpuscular HGB Conc 34.2 g/dl (31.0-35.0); Mean Corpuscular Hemoglobin 31.8 pg (27.0-33.0); Mean Corpuscular Volume 92.9 fL (80-98); Mean Platelet Volume 9.3 fL (9.4-12.3); Monocytes Absolute Auto 0.5 X10*3/uL (0.1-1.2); Monocytes Percent Auto 7.8 % (2-11); Neutrophils Absolute Auto 2.1 X10*3/uL (2.0-8.3); Neutrophils Percent Auto 36.6 % (45-73); Platelet Count 296 X10*3/uL (160-400); Red Blood Count 4.25 X10*6/uL (4.20-5.50); Red Cell Distribution Width 14.2 % (11.0-16.0); White Blood Count 5.8 X10*3/uL (4.8-10.8)
[2020-12-23 11:07] LABS: Ethanol 329 mg/dL
[2020-12-23 11:08] LABS: COVID-19 Test Negative (Negative); IDNOW Serial# 9DD0AD1C
[2020-12-23 11:10] LABS: Alanine Aminotransferase 28 U/L (0-31); Albumin Level 4.4 g/dL (3.5-5.0); Alkaline Phosphatase 95 U/L (39-117); Anion Gap 14 (12-20); Aspartate Amino Transferase 31 U/L (5-31); Bilirubin Direct < 0.2 mg/dL (0.0-0.5); Bilirubin Total 0.2 mg/dL (0.0-1.0); Blood Urea Nitrogen 12 mg/dL (9-16); Calcium 9.4 mg/dL (8.4-10.2); Carbon Dioxide 29 mmol/L (22-29); Chloride 106 mmol/L (96-108); Creatinine Clr Calc Pharmacy 66.6; Estimated Glomerular Filt Rate > 60; Glucose Random 90 mg/dL (60-115); Magnesium 1.8 mg/dL (1.6-2.6); Potassium 4.1 mmol/L (3.3-5.1); Sodium 145 mmol/L (135-145); Total Protein 7.6 g/dL (6.5-8.0)
[2020-12-23 11:45] LABS: Amphetamine Screen Urine Not Detected (Not Detect); Barbiturates, Urine Not Detected (Not Detect); Benzodiazepines Screen Urine Not Detected (Not Detect); Cannabinoid Screen Urine Not Detected (Not Detect); Cocaine Screen Urine Not Detected (Not Detect); Fentanyl, urine Not Detected (Not Detect); Opiate Screen Urine Not Detected (Not Detect); Phencyclidine Screen Urine Not Detected (Not Detect)
--- NOTE | 2020-12-23 14:45 | MHC.RECOVSUP ---
Recovery Support note: Patient is a 55 year old Filipino speaking female who presented [place] [facility] [place]. Patient is known to this sports writer from previous consultations Patient reports she was discharged from [facility] approximately two weeks ago. Patient reports she had a plan in place and was very committed to maintaining sobriety. According to patient, her step-father and her sister has been very controlling of the whole process. Patient reports this event has been a great source of anxiety and distress and that she relapsed as a result. Patient reports she has been drinking at least half a pint of liquor, however she reports I swig from the bottle and did not have an exact estimate of how much she drinks. Patient denies SI/HI/AH/VH and states she would like to go to detox. ATS Bedsearch exhausted. No available detox beds at this time. Patient has been sleeping in BH3 since her arrival. Recovery Support Team will follow up with each ATS facility later on in the day to determine if any beds opened up. Discussed case with patient's RN.
--- NOTE | 2020-12-23 15:27 | PC.NURSE ---
Patient sleeping in NAD, breathing even and unlabored. Continued search for detox bed.
[2020-12-23 20:19] VITALS: BP 124/78; PULSE 66; RESP 15; TEMP 36.9; O2SAT 96
--- NOTE | 2020-12-24 06:38 | PC.NURSE ---
Patient slept through the night, no distress observed/reported, asymptomatic of withdrawal, assistant strength coach is doing detox bed search, VSS, behavior appropriate, will continue to monitor.
[2020-12-24 06:42] VITALS: BP 147/89; PULSE 62; RESP 16; TEMP 36.6; O2SAT 99
[2020-12-24 10:11] VITALS: BP 140/83; PULSE 72; RESP 16; TEMP 37.1; O2SAT 98
[2020-12-24] MEDS: LORazepam 1 MG TABLET 2 MG PO (10:18)
== END 2020-12-24 12:17 | disposition home or self-care (01) ==
PROVIDERS: Emergency Provider Emergency Medicine; PCP Family Medicine
DX: F10.229 Alcohol dependence with intoxication, unspecified (principal); F33.1 Major depressive disorder, recurrent, moderate; Y90.8 Blood alcohol level of 240 mg/100 ml or more; R40.2410 Glasgow coma scale score 13-15, unspecified time; F17.200 Nicotine dependence, unspecified, uncomplicated; Z71.6 Tobacco abuse counseling; Z79.899 Other long term (current) drug therapy; Z20.822 Contact with and (suspected) exposure to COVID-19; Z71.41 Alcohol abuse counseling and surveillance of alcoholic
CPT/HCPCS: 36415; 80048; 80076; 80307; 82077; 83735; 85025; 87635; 99284; 99285

== ENCOUNTER 2020-12-26 12:53 | Emergency (ER) | payer OTHER, SELFPAY ==
[2020-12-26 13:01] VITALS: BP 159/67; PULSE 97; RESP 22; TEMP 37.2; O2SAT 100
[2020-12-26 13:09] VITALS: BP 159/67; PULSE 100; PULSE 97; RESP 22; TEMP 37.2; O2SAT 100; BMI 24.4
--- NOTE | 2020-12-26 13:33 | ED_ITS ---
HPI - Alcohol General Chief Complaint: ETOH/Substance Use Stated Complaint: WANTS CRISIS EVAL AND DETOX, ETOH Time Seen by Provider: 12/26/20 13:19 History of Present Illness HPI narrative: Patient is 55 years old long history of alcohol abuse. Presented today after drinking. Patient now wants detox. Denies any suicidal homicidal ideation. Denies any trauma. Related Data Home Medications Medication Instructions Recorded Confirmed naltrexone 50 mg tablet 50 mg PO DAILY 04/22/20 04/22/20 sertraline 50 mg tablet 50 mg PO DAILY 04/22/20 04/22/20 Allergies Allergy/AdvReac Type Severity Reaction Status Date / Time Penicillins [PENICILLINS] Allergy Intermediate HIVES Verified 05/02/20 13:38 Review of Systems Review of Systems: Unable to obtain review systems secondary patient's condition Yes Unobtainable due to mental status PMFSH Past Medical History Attestation statement: The following information was validated with the patient. Medical History H/O alcohol abuse Social History Social History Alcohol intake: current Alcohol intake frequency: 3 or more drinks per day Alcohol type: hard liquor Patient Tobacco Use Status: Current everyday Tobacco user Advance Directives: No Advance Directives Information Provided: No Physical Exam Vital Signs: Vital Signs: Last Vital Signs Temp 99 F 12/26/20 13:09 Pulse 97 12/26/20 13:09 Resp 22 H 12/26/20 13:09 BP 159/67 H 12/26/20 13:09 Pulse Ox 100 12/26/20 13:09 Body Mass Index 24.4 Appearance: Alert. Oriented X3. No acute distress. Eyes: Pupils equal, round and reactive to light. ENT: Pharynx normal. Neck: Normal inspection. Neck supple. No lymph nodes noted. No crepitus CVS: Normal heart rate and rhythm. Pulses normal. Normal S1 and S2 Respiratory: No respiratory distress. Breath sounds normal. No Wheezing. No rales Abdomen: Soft and nontender. No rigidity. No distention. good BS x4 Skin: Skin warm and dry. Normal skin color. Normal skin turgor. Extremities: No lower extremity edema. Neurovascular intact to all extremities. No Lacerations. No Rash Neuro: Oriented X 3. No motor deficit. No sensory deficit. Moving all exterm ities. No slurred speech MDM - Alcohol MDM Narrative Medical decision making narrative: Will get baseline labs. Will attempt to get substance abuse counseling for patient. No suicidal homicidal ideation. In stable condition Patient's alcohol for 300. Evaluated by substance abuse counseling. Family will take patient home. Waiting for a detox bed to open. Will help patient get into a detox. She is in stable condition. Medical Records Attestation: I reviewed the patient's medical records. Lab Data Attestation: I reviewed the patient's lab results. Result diagrams: 12/26/20 13:49 12/26/20 13:49 Labs: Lab Results 12/26/20 12/26/20 12/26/20 Range/Units 13:49 13:49 13:49 WBC 5.4 (4.8-10.8) X10*3/uL RBC 4.41 (4.20-5.50) X10*6/uL Hgb 13.7 (12.0-16.0) g/dl Hct 40.5 (37-47) % MCV 91.8 (80-98) fL MCH 31.1 (27.0-33.0) pg MCHC 33.8 (31.0-35.0) g/dl RDW 13.9 (11.0-16.0) % Plt Count 309 (160-400) X10*3/uL MPV 9.5 (9.4-12.3) fL Immature Gran % (Auto) 0.2 (0.0-0.4) % Neut % (Auto) 36.5 L (45-73) % Lymph % (Auto) 53.2 H (20-40) % [place] % (Auto) 6.2 (2-11) % Eos % (Auto) 2.4 (0-4) % Baso % (Auto) 1.5 (0-2) % Lymph # (Auto) 2.9 (1.2-4.9) X10*3/uL [place] # (Auto) 0.3 (0.1-1.2) X10*3/uL Eos # (Auto) 0.1 (0.0-0.4) X10*3/uL Baso # (Auto) 0.1 (0.0-0.2) X10*3/uL Abs Immat Gran (auto) 0.01 (0.00-0.03) X10*3/uL Absolute Neuts (auto) 2.0 (2.0-8.3) X10*3/uL Absolute Nucleated RBC 0.000 (0.0-0.012) X10*3/uL Nucleated RBC % (auto) 0.0 (0.0-0.2) /100WBC Sodium 144 (135-145) mmol/L Potassium 4.4 (3.3-5.1) mmol/L Chloride 106 (96-108) mmol/L Carbon Dioxide 25 (22-29) mmol/L Anion Gap 17 (12-20) BUN 8 L (9-16) mg/dL Creatinine 0.72 (0.5-1.4) mg/dL Estim Creat Clear Calc 71.2 Estimated GFR > 60 Random Glucose 87 (60-115) mg/dL Calcium 9.3 (8.4-10.2) mg/dL Total Bilirubin 0.3 (0.0-1.0) mg/dL AST 33 H (5-31) U/L ALT 25 (0-31) U/L Alkaline Phosphatase 100 (39-117) U/L Total Protein 8.2 H (6.5-8.0) g/dL Albumin 4.5 (3.5-5.0) g/dL Ethyl Alcohol 374 H* mg/dL Discharge Plan Discharge Clinical Impression: Alcoholic intoxication Patient Disposition: Home, Self-Care Instructions: Alcohol Intoxication (ED) Prescriptions: No Action naltrexone 50 mg Tablet 50 mg PO DAILY RF: 0 sertraline 50 mg Tablet 50 mg PO DAILY RF: 0 Referrals: Shane Serna MD [Primary Care Provider] - 2 days (Please go to detox as per substance abuse counseling.)
[2020-12-26 13:53] LABS: MANUAL DIFF FLAG NO
[2020-12-26 14:00] LABS: Basophils Absolute Auto 0.1 X10*3/uL (0.0-0.2); Basophils Percent Auto 1.5 % (0-2); Eosinophils Absolute Auto 0.1 X10*3/uL (0.0-0.4); Eosinophils Percent Auto 2.4 % (0-4); Hematocrit 40.5 % (37-47); Hemoglobin 13.7 g/dl (12.0-16.0); Imm Gran Abs Auto 0.01 X10*3/uL (0.00-0.03); Imm Gran Pct Auto 0.2 % (0.0-0.4); Lymphocytes Absolute Auto 2.9 X10*3/uL (1.2-4.9); Lymphocytes Percent Auto 53.2 % (20-40); Mean Corpuscular HGB Conc 33.8 g/dl (31.0-35.0); Mean Corpuscular Hemoglobin 31.1 pg (27.0-33.0); Mean Corpuscular Volume 91.8 fL (80-98); Mean Platelet Volume 9.5 fL (9.4-12.3); Monocytes Absolute Auto 0.3 X10*3/uL (0.1-1.2); Monocytes Percent Auto 6.2 % (2-11); Neutrophils Percent Auto 36.5 % (45-73); Platelet Count 309 X10*3/uL (160-400); Red Blood Count 4.41 X10*6/uL (4.20-5.50); Red Cell Distribution Width 13.9 % (11.0-16.0); White Blood Count 5.4 X10*3/uL (4.8-10.8)
[2020-12-26 14:05] LABS: Ethanol 374 mg/dL
[2020-12-26 14:12] LABS: Alanine Aminotransferase 25 U/L (0-31); Albumin Level 4.5 g/dL (3.5-5.0); Alkaline Phosphatase 100 U/L (39-117); Anion Gap 17 (12-20); Aspartate Amino Transferase 33 U/L (5-31); Bilirubin Total 0.3 mg/dL (0.0-1.0); Blood Urea Nitrogen 8 mg/dL (9-16); Calcium 9.3 mg/dL (8.4-10.2); Carbon Dioxide 25 mmol/L (22-29); Chloride 106 mmol/L (96-108); Creatinine Clr Calc Pharmacy 71.2; Estimated Glomerular Filt Rate > 60; Glucose Random 87 mg/dL (60-115); Potassium 4.4 mmol/L (3.3-5.1); Sodium 144 mmol/L (135-145); Total Protein 8.2 g/dL (6.5-8.0)
--- NOTE | 2020-12-26 14:39 | PC.NURSE ---
Pt resting quietly in bed. Allowed staff to complete labs. Shouts out at times but falls back asleep.
--- NOTE | 2020-12-26 15:02 | MHC.RECOVSUP ---
Recovery Support note: Patient is a 55 year old Gabonese speaking female who presented [place] [facility] [place] [facility] [place] seeking detox. Patient is known to this appeals writer from previous consultations. Patient discharged from [facility] on 12/24 after presenting for a similar reason. No ATS beds were available at that time. Patient continues to report daily alcohol consumption and a desire to go to detox. This appeals writer contacted [facility] and patient completed an intake for the [facility]. Plan for patient to go home to pack a bag and [facility] will pick her up at 1700 at her home. Discussed case with patient's ED provider.
--- NOTE | 2020-12-26 15:04 | PC.NURSE ---
Pt ambulated with steady gait to BR to provide urine sample.
[2020-12-26 15:29] LABS: Amphetamine Screen Urine Not Detected (Not Detect); Barbiturates, Urine Not Detected (Not Detect); Benzodiazepines Screen Urine Not Detected (Not Detect); Cannabinoid Screen Urine Not Detected (Not Detect); Cocaine Screen Urine Not Detected (Not Detect); Fentanyl, urine Not Detected (Not Detect); Opiate Screen Urine Not Detected (Not Detect); Phencyclidine Screen Urine Not Detected (Not Detect)
== END 2020-12-26 15:44 | disposition home or self-care (01) ==
PROVIDERS: Emergency Provider Emergency Medicine Emergency Medical Services; PCP Family Medicine
DX: F10.129 Alcohol abuse with intoxication, unspecified (principal); Z79.899 Other long term (current) drug therapy; F17.210 Nicotine dependence, cigarettes, uncomplicated; Z71.6 Tobacco abuse counseling; Z71.41 Alcohol abuse counseling and surveillance of alcoholic
CPT/HCPCS: 80053; 80307; 82077; 85025; 99284

== ENCOUNTER 2021-08-31 15:54 | Emergency (ER) | payer OTHER, SELFPAY ==
--- NOTE | ~2021-08-31 | CT_ITS ---
EXAMINATION: CT HEAD WITHOUT CONTRAST CLINICAL INFORMATION: Fall. Question head strike. COMPARISON: None TECHNIQUE: Contiguous axial imaging was performed from the skull base to vertex without intravenous administration of contrast. This CT examination was performed using dose optimization techniques as appropriate, variously including the following: *Automated exposure control *Adjustment of mA and/or kV according to patient size (this includes techniques or standardized protocols for targeted exams where dose is matched to indication/reason for exam; i.e. extremities or head) *Use of iterative reconstruction technique DLP: 615 mGy-cm FINDINGS: There is no evidence of acute intracranial hemorrhage or territorial infarction. No abnormal mass effect or midline shift is seen. [place] to white matter differentiation is well preserved. No extra-axial fluid collections are identified. The ventricles are normal in size. There is no abnormal attenuation within the brain parenchyma. The osseous structures and soft tissues are normal. The mastoid air cells are well aerated. Mild sphenoid sinus mucosal thickening noted. CT/CT head/brain wo con IMPRESSION: No acute intracranial pathology.
[2021-08-31 16:03] VITALS: BP 135/91; O2SAT 100; BMI 20.5
--- NOTE | 2021-08-31 16:16 | PC.NURSE ---
brought in via ems. per ems bystander called 911 and reported that pt was seen crawling on the ground at the hotel where she lives. pt states she drank too much hard liquor today and is angry because she can't stop drinking. she admits to drinking hard liquor daily. been to rehab and do not want to go back because it did not help. denies auditory/visual hallucinations. denies si/hi. reports hx of etoh withdrawals with seizures.
--- NOTE | 2021-08-31 16:17 | ED.ALCOHOL ---
HPI - Alcohol General Chief Complaint: ETOH/Substance Use <SHMUEL Yen - Last Filed: 08/31/21 21:38> Stated Complaint: ETOH <SHMUEL Yen - Last Filed: 08/31/21 21:38> Time Seen by Provider: 08/31/21 16:17 <SHMUEL Yen - Last Filed: 08/31/21 21:38> Source: patient <SHMUEL Yen - Last Filed: 08/31/21 21:38> Mode of arrival: ambulatory <SHMUEL Yen - Last Filed: 08/31/21 21:38> Limitations: other (Poor historian) <SHMUEL Yen - Last Filed: 08/31/21 21:38> History of Present Illness HPI narrative: 56-year-old female past medical history significant for alcohol abuse presenting to the emergency department with acute alcohol intoxication. Patient was brought in by ambulance after a bystander called 911 because patient was crawling around the floor of the hotel. Patient tells me that she does not know how much she drink today however she is a current daily drinker. She tells me that she remembers buying a sleeve of vodka nips this morning and she knows that she took them all. Patient tells me she has a history of alcohol withdrawal seizures, her last drink was prior to her arrival. Patient denies suicidal and homicidal ideation. Denies visual, auditory and tactile hallucinations. Patient is tearful and tells me she is upset because she does not know where her money or phone are. She tells me she is currently living in a hotel. Denies any medical complaints. Denies trauma however she was found on the ground and patient is poor historian. Patient is not seeking detox at this time, tells me she has gone before and it does not help. <SHMUEL Yen - Last Filed: 08/31/21 21:38> MD complaint: alcohol intoxication and alcohol dependence <SHMUEL Yen Last Filed: 08/31/21 21:38> Last drink: Just prior to admission <SHMUEL Yen Last Filed: 08/31/21 21:38> Chronic alcohol use: Yes <SHMUEL Yen Last Filed: 08/31/21 21:38> Previous visits for alcohol intoxication: Yes <SHMUEL Yen Last Filed: 08/31/21 21:38> Associated symptoms: denies other symptoms <SHMUEL Yen Last Filed: 08/31/21 21:38> Treatments prior to arrival: none <SHMUEL Yen Last Filed: 08/31/21 21:38> Related Data Home Medications: Home Medications Medication Instructions Recorded Confirmed naltrexone 50 mg tablet 50 mg PO DAILY 04/22/20 04/22/20 sertraline 50 mg tablet 50 mg PO DAILY 04/22/20 04/22/20 <SHMUEL Yen Last Filed: 08/31/21 21:38> Allergies/Adverse Reactions: Allergies Allergy/AdvReac Type Severity Reaction Status Date / Time Penicillins [PENICILLINS] Allergy Intermediate HIVES Verified 05/02/20 13:38 <SHMUEL Yen Last Filed: 08/31/21 21:38> Review of Systems Review of Systems: Constitutional : No Weight loss, No Fever, No Chills, No Fatigue, No Malaise ENT/Mouth : No sore throat, No Rhinorrhea Eyes: No Eye Pain, No Swelling, No Redness Cardiovascular : No Chest Pain, No SOB, No Dyspnea on Exertion, No Orthopnea, No Edema, No Palpitations Respiratory : No Cough, No Sputum, No Wheezing Gastrointestinal : No Nausea, No Vomiting, No Diarrhea, No Constipation, No abdominal Pain, No Hematochezia, No Melena Genitourinary : No Dysuria, No Urinary Frequency, No Hematuria, Musculoskeletal : No joint pain, No Myalgias, No Joint Swelling Skin : No Skin Lesions, No rash Neuro : No Weakness, No Numbness, No Dizziness, No Headache Psych : No Anxiety/Panic, No Depression All other systems reviewed and are negative <SHMUEL Yen Last Filed: 08/31/21 21:38> Yes all other systems are reviewed and are negative <SHMUEL Yen Last Filed: 08/31/21 21:38> [facility] Past Medical History Attestation statement: The following information was validated with the patient. <SHMUEL Yen - Last Filed: 08/31/21 21:38> Source: old records reviewed and nursing notes reviewed <SHMUEL Yen - Last Filed: 08/31/21 21:38> Medical History: Medical History H/O alcohol abuse <SHMUEL Yen - Last Filed: 08/31/21 21:38> Social History Social History: Social History Alcohol intake: current Alcohol intake frequency: 3 or more drinks per day Alcohol type: hard liquor Patient Tobacco Use Status: Current everyday Tobacco user Advance Directives: No Advance Directives Information Provided: No <SHMUEL Yen - Last Filed: 08/31/21 21:38> Physical Exam ED Vital Signs: Vital Signs - 24 hr 08/31/21 16:21 Pulse Rate 87 Respiratory Rate 20 Blood Pressure 130/82 Pulse Oximetry 93 BMI result Body Mass Index 20.5 <SHMUEL Yen - Last Filed: 08/31/21 21:38> Appearance: Alert.? Oriented X3.? No acute distress.? Patient tearful. Smells like alcohol. Head: Normocephalic, atraumatic, no step-offs or deformities Eyes: Pupils equal, round and reactive to light.?+ bilateral conjunctival injection. ENT: Pharynx normal.? Neck: Normal inspection.? Neck supple.? CVS: Normal heart rate and rhythm.? Pulses normal.? Respiratory: No respiratory distress.? Breath sounds normal.? Abdomen: Soft and nontender.? Skin: Skin warm and dry.? Normal skin color.? Normal skin turgor.? Extremities: No lower extremity edema.? No calf ttp. 5/5 strength to bilateral upper and lower extremities Back: No midline tenderness, no C-spine tenderness, full range of motion, no CVA tenderness bilaterally Neuro: Oriented X 3.? No motor deficit.? No sensory deficit. CN 2-12 intact <SHMUEL Yen Last Filed: 08/31/21 21:38> Course Reevaluation(s) Reevaluation #1: CBC with no acute findings. Chemistry with no acute electrolyte abnormalities requiring intervention. Patient's Mag is 1.5 however tolerating p.o. fluids, asymptomatic. UA with no signs of infection. Urine toxicology negative. Ethanol level 335. COVID negative. CT is no acute findings. Patient spoke to disaster recovery coordinator and does not want detox. basketball coach spent a good amount of time talking to patient she says she has too much going on in detox is not in her plans. Patient continues to deny SI and HI. CIWA score 0 At this time patient will be placed in physician observation to allow more time for patient to be clinically sober. Will re-evaluate her, and ask her if she would like to be evaluated by the behavioral health team wants sober. <SHMUEL Yen - Last Filed: 08/31/21 21:38> Time: 19:27 <SHMUEL Yen - Last Filed: 08/31/21 21:38> MDM - Alcohol MDM Narrative Medical decision making narrative: 1620 56-year-old female presents with acute alcohol intoxication was found at the hotel crawling around, patient poor historian. Denying medical complaints at this time. Tearful. Denies SI and HI. Not seeking detox. Physical examination significant for an intoxicated 56-year-old female with smells like alcohol with injected sclerae bilaterally. Regular rate and rhythm. Lungs clear. Abdomen soft nontender nondistended. Pupils equal round and reactive. Extraocular movements intact. Head is atraumatic normocephalic. Patient answering questions appropriately alert and oriented x3. No focal neuro deficits. Plan at this time is basic labs, urine, head CT. <SHMUEL Yen - Last Filed: 08/31/21 21:38> Medical Records Attestation: I reviewed the patient's medical records. <SHMUEL Yen Last Filed: 08/31/21 21:38> Lab Data Attestation: I reviewed the patient's lab results. <SHMUEL Yen Last Filed: 08/31/21 21:38> Result diagrams: : 08/31/21 18:08 08/31/21 18:08 <Angel Luis Cm PA - Last Filed: 08/31/21 21:38> Labs: Lab Results 08/31/21 08/31/21 08/31/21 Range/Units 18:08 18:08 18:08 WBC 5.9 (4.8-10.8) X10*3/uL RBC 5.21 (4.20-5.50) X10*6/uL Hgb 15.6 (12.0-16.0) g/dl Hct 45.0 (37.0-47.0) % MCV 86.4 (80.0-98.0) fL MCH 29.9 (27.0-33.0) pg MCHC 34.7 (31.0-35.0) g/dl RDW 14.8 (11.0-16.0) % Plt Count 254 (160-400) X10*3/uL MPV 9.4 (9.4-12.3) fL Immature Gran % (Auto) 0.3 (0.0-0.4) % Neut % (Auto) 64.3 (45-73) % Lymph % (Auto) 27.6 (20-40) % [place] % (Auto) 5.6 (2-11) % Eos % (Auto) 1.2 (0-4) % Baso % (Auto) 1.0 (0-2) % Lymph # (Auto) 1.6 (1.2-4.9) X10*3/uL [place] # (Auto) 0.3 (0.1-1.2) X10*3/uL Eos # (Auto) 0.1 (0.0-0.4) X10*3/uL Baso # (Auto) 0.1 (0.0-0.2) X10*3/uL Abs Immat Gran (auto) 0.02 (0.00-0.03) X10*3/uL Absolute Neuts (auto) 3.8 (2.0-8.3) x10*3/uL Absolute Nucleated RBC 0.000 (0.0-0.012) X10*3/uL Nucleated RBC % (auto) 0.0 (0.0-0.2) /100WBC Sodium 140 (135-145) mmol/L Potassium 3.7 (3.3-5.1) mmol/L Chloride 99 (96-108) mmol/L Carbon Dioxide 25 (22-29) mmol/L Anion Gap 20 (12-20) BUN 10 (9-16) mg/dL Creatinine 0.79 (0.5-1.4) mg/dL Estim Creat Clear Calc 58.4 Estimated GFR > 60 Random Glucose 136 H (60-115) mg/dL Calcium 9.3 (8.4-10.2) mg/dL Magnesium 1.5 L (1.6-2.6) mg/dL Total Bilirubin 0.4 (0.0-1.0) mg/dL AST 29 (5-31) U/L ALT 19 (0-31) U/L Alkaline Phosphatase 109 (39-117) U/L Total Protein 7.8 (6.5-8.0) g/dL Albumin 4.4 (3.5-5.0) g/dL Urine Color Urine Appearance Urine pH (5.0-8.0) Ur Specific Anna (1.005-1.025) Urine Protein (NEG-TRACE) MG/DL Urine Glucose (UA) (NEG) MG/DL Urine Ketones (NEG) MG/DL Urine Blood (NEG) Urine Nitrite (NEG) Ur Leukocyte Esterase (NEG) Urine RBC (0) /HPF Urine WBC (0-4) /HPF Ur Squamous Epith Cells /LPF Urine Bacteria /LPF Hyaline Casts /LPF Urine Opiates Screen (Not Detect) Urine Fentanyl Screen (Not Detect) Ur Barbiturates Screen (Not Detect) Ur Phencyclidine Scrn (Not Detect) Ur Amphetamines Screen (Not Detect) U Benzodiazepines Scrn (Not Detect) Urine Cocaine Screen (Not Detect) U Marijuana (THC) Screen (Not Detect) Ethyl Alcohol mg/dL COVID-19 ([facility]) Negative (Negative) COVID-19 Clin Com See Note 08/31/21 08/31/21 08/31/21 Range/Units 18:08 18: 18: WBC (4.8-10.8) X10*3/uL RBC (4.20-5.50) X10*6/uL Hgb (12.0-16.0) g/dl Hct (37.0-47.0) % MCV (80.0-98.0) fL MCH (27.0-33.0) pg MCHC (31.0-35.0) g/dl RDW (11.0-16.0) % Plt Count (160-400) X10*3/uL MPV (9.4-12.3) fL Immature Gran % (Auto) (0.0-0.4) % Neut % (Auto) (45-73) % Lymph % (Auto) (20-40) % [place] % (Auto) (2-11) % Eos % (Auto) (0-4) % Baso % (Auto) (0-2) % Lymph # (Auto) (1.2-4.9) X10*3/uL [place] # (Auto) (0.1-1.2) X10*3/uL Eos # (Auto) (0.0-0.4) X10*3/uL Baso # (Auto) (0.0-0.2) X10*3/uL Abs Immat Gran (auto) (0.00-0.03) X10*3/uL Absolute Neuts (auto) (2.0-8.3) x10*3/uL Absolute Nucleated RBC (0.0-0.012) X10*3/uL Nucleated RBC % (auto) (0.0-0.2) /100WBC Sodium (135-145) mmol/L Potassium (3.3-5.1) mmol/L Chloride (96-108) mmol/L Carbon Dioxide (22-29) mmol/L Anion Gap (12-20) BUN (9-16) mg/dL Creatinine (0.5-1.4) mg/dL Estim Creat Clear Calc Estimated GFR Random Glucose (60-115) mg/dL Calcium (8.4-10.2) mg/dL Magnesium (1.6-2.6) mg/dL Total Bilirubin (0.0-1.0) mg/dL AST (5-31) U/L ALT (0-31) U/L Alkaline Phosphatase (39-117) U/L Total Protein (6.5-8.0) g/dL Albumin (3.5-5.0) g/dL Urine Color YELLOW Urine Appearance CLEAR Urine pH 5.5 (5.0-8.0) Ur Specific Anna >= 1.030 H (1.005-1.025) Urine Protein 1+ H (NEG-TRACE) MG/DL Urine Glucose (UA) NEG (NEG) MG/DL Urine Ketones NEG (NEG) MG/DL Urine Blood 1+ H (NEG) Urine Nitrite NEG (NEG) Ur Leukocyte Esterase NEG (NEG) Urine RBC 1-4 (0) /HPF Urine WBC 1-4 (0-4) /HPF Ur Squamous Epith Cells 1+ /LPF Urine Bacteria 2+ /LPF Hyaline Casts 0-2 /LPF Urine Opiates Screen Not Detected (Not Detect) Urine Fentanyl Screen Not Detected (Not Detect) Ur Barbiturates Screen Not Detected (Not Detect) Ur Phencyclidine Scrn Not Detected (Not Detect) Ur Amphetamines Screen Not Detected (Not Detect) U Benzodiazepines Scrn Not Detected (Not Detect) Urine Cocaine Screen Not Detected (Not Detect) U Marijuana (THC) Screen Not Detected (Not Detect) Ethyl Alcohol 335 H* mg/dL COVID-19 ([facility]) (Negative) COVID-19 Clin Com <SHMUEL Yen - Last Filed: 08/31/21 21:38> Critical Care Time Critical Care Time Critical Care Time: No <SHMUEL Yen - Last Filed: 08/31/21 21:38> Discharge Plan Discharge Clinical Impression: Alcoholism, Alcoholic intoxication <SHMUEL Yen - Last Filed: 08/31/21 21:38> Patient Disposition: Home, Self-Care <SHMUEL Yen Last Filed: 08/31/21 21:38> Instructions: Alcohol Intoxication (ED), Abuse of Alcohol (ED), Alcohol Withdrawal (ED), Alcohol Use Disorder (ED) <SHMUEL Yen - Last Filed: 08/31/21 21:38> Additional Instructions: Take your medications as prescribed. If you were prescribed antibiotics today, it is important that you take your medication to their entirety, do not skip any doses, do not finish them early. Follow-up with your primary care provider this week. Return to the emergency department with new or worsening symptoms. Such as fevers, chills, chest pain, shortness of breath, nausea, vomiting, dizziness, headache, vision changes, lethargy, suicidal ideation, homicidal ideation In case of emergency call 911 We offered you detox however you refuse. <SHMUEL Yen - Last Filed: 08/31/21 21:38> Prescriptions: No Action naltrexone 50 mg Tablet 50 mg PO DAILY 0RF Label Comments: States she no longer takes sertraline 50 mg Tablet 50 mg PO DAILY 0RF <SHMUEL Yen - Last Filed: 08/31/21 21:38> Referrals: ED Physician,Generic [Physician] - 2 days <SHMUEL Yen - Last Filed: 08/31/21 21:38> Interventions: ED Discharge Assessment Last Done: 08/31/21 21:48 <SHMUEL Yen - Last Filed: 08/31/21 21:38> Discharge Date/Time: 08/31/21 21:49 <SHMUEL Yen - Last Filed: 08/31/21 21:38>
[2021-08-31 16:21] VITALS: BP 130/82; PULSE 87; RESP 20; O2SAT 93
[2021-08-31] MEDS: LORazepam 1 MG TABLET PO (16:57)
--- NOTE | 2021-08-31 17:38 | MHC.RECOVSUP ---
? Reason for consult ED19H o Current location: o Identified substance use concern: Alcohol - Support ? Intervention: o Community resources provided o Harm reduction discussion ? Plan: o Patient to follow up with H after discharge ? Additional information: Met with Patient and we talk about recovery and Harm reduction.. Patient did not want to back to detox right now, because she has a lot going on right now...
[2021-08-31] MEDS: 0.9 % Sodium Chloride 1,000 ML 999 ML IV (18:15)
[2021-08-31 18:16] LABS: MANUAL DIFF FLAG NO
[2021-08-31 18:25] LABS: Hemoglobin 15.6 g/dl (12.0-16.0); Red Blood Count 5.21 X10*6/uL (4.20-5.50); White Blood Count 5.9 X10*3/uL (4.8-10.8)
[2021-08-31 18:26] LABS: Basophils Absolute Auto 0.1 X10*3/uL (0.0-0.2); Eosinophils Absolute Auto 0.1 X10*3/uL (0.0-0.4); Eosinophils Percent Auto 1.2 % (0-4); Imm Gran Abs Auto 0.02 X10*3/uL (0.00-0.03); Imm Gran Pct Auto 0.3 % (0.0-0.4); Lymphocytes Absolute Auto 1.6 X10*3/uL (1.2-4.9); Lymphocytes Percent Auto 27.6 % (20-40); Mean Corpuscular HGB Conc 34.7 g/dl (31.0-35.0); Mean Corpuscular Hemoglobin 29.9 pg (27.0-33.0); Mean Corpuscular Volume 86.4 fL (80.0-98.0); Mean Platelet Volume 9.4 fL (9.4-12.3); Monocytes Absolute Auto 0.3 X10*3/uL (0.1-1.2); Monocytes Percent Auto 5.6 % (2-11); Neutrophils Absolute Auto 3.8 x10*3/uL (2.0-8.3); Neutrophils Percent Auto 64.3 % (45-73); Platelet Count 254 X10*3/uL (160-400); Red Cell Distribution Width 14.8 % (11.0-16.0)
[2021-08-31 18:31] LABS: Ethanol 335 mg/dL
[2021-08-31 18:35] LABS: Alanine Aminotransferase 19 U/L (0-31); Albumin Level 4.4 g/dL (3.5-5.0); Alkaline Phosphatase 109 U/L (39-117); Anion Gap 20 (12-20); Aspartate Amino Transferase 29 U/L (5-31); Bilirubin Total 0.4 mg/dL (0.0-1.0); Blood Urea Nitrogen 10 mg/dL (9-16); Calcium 9.3 mg/dL (8.4-10.2); Carbon Dioxide 25 mmol/L (22-29); Chloride 99 mmol/L (96-108); Creatinine Clr Calc Pharmacy 58.4; Estimated Glomerular Filt Rate > 60; Glucose Random 136 mg/dL (60-115); Magnesium 1.5 mg/dL (1.6-2.6); Potassium 3.7 mmol/L (3.3-5.1); Sodium 140 mmol/L (135-145); Total Protein 7.8 g/dL (6.5-8.0)
[2021-08-31 18:43] LABS: COVID-19 Test Negative (Negative); IDNOW Serial# 16C4AD1C
[2021-08-31 18:52] LABS: Appearance Urine CLEAR; Color Urine YELLOW; Glucose Urine UA NEG (NEG); Leukocyte Esterase Urine NEG (NEG); Nitrite Urine NEG (NEG); PH 5.5 (5.0-8.0); Specific Gravity - Urine >= 1.030 (1.005-1.025); UACC Culture Trigger NO; Urine Blood 1+ (NEG); Urine Ketones NEG (NEG); Urine Protein 1+ MG/DL (NEG-TRACE)
[2021-08-31 19:06] LABS: Amphetamine Screen Urine Not Detected (Not Detect); Barbiturates, Urine Not Detected (Not Detect); Benzodiazepines Screen Urine Not Detected (Not Detect); Cannabinoid Screen Urine Not Detected (Not Detect); Cocaine Screen Urine Not Detected (Not Detect); Fentanyl, urine Not Detected (Not Detect); Opiate Screen Urine Not Detected (Not Detect); Phencyclidine Screen Urine Not Detected (Not Detect)
[2021-08-31 19:11] LABS: Bacteria Urine 2+ /LPF; Squamous Epithelial Cell Urine 1+ /LPF
[2021-08-31 19:12] LABS: Hyaline Casts Urine 0-2 /LPF
--- NOTE | 2021-08-31 21:43 | PC.NURSE ---
pt ambulated to BR without any complaints of pain or dizziness
--- NOTE | 2021-08-31 21:48 | PC.NURSE ---
pt stable for discharge. pt does not want detox. pt asking this RN for her wallet, this RN educates pt that we did not take any of her belongings.
== END 2021-08-31 21:49 | disposition home or self-care (01) ==
PROVIDERS: Physician Assistant; Emergency Provider Emergency Medicine; PCP Family Medicine
DX: F10.229 Alcohol dependence with intoxication, unspecified (principal); Y90.8 Blood alcohol level of 240 mg/100 ml or more; Z20.822 Contact with and (suspected) exposure to COVID-19
CPT/HCPCS: 70450; 80053; 80307; 81001; 82077; 83735; 85025; 87635; 96360; 99283; 99284

== ENCOUNTER 2021-10-13 11:36 | Emergency (ER) | payer OTHER, SELFPAY ==
[2021-10-13 11:48] VITALS: BP 119/76; PULSE 76; RESP 16; TEMP 36.6; O2SAT 96; BMI 23.4
--- NOTE | 2021-10-13 12:05 | ED.ALCOHOL ---
HPI - Alcohol General Chief Complaint: ETOH/Substance Use <Nelda Ramirez RADHA Muñoz - Last Filed: 10/13/21 20:17> Stated Complaint: ETOH INTOX WANTS DETOX <Nelda Ramirez RADHA Muñoz - Last Filed: 10/13/21 20:17> Time Seen by Provider: 10/13/21 11:47 <Nelda Muñoz CNP - Last Filed: 10/13/21 20:17> Source: patient <Nelda Ramirez RADHA Muñoz - Last Filed: 10/13/21 20:17> Mode of arrival: EMS <Nelda Echavarriamonika Muñoz CNP - Last Filed: 10/13/21 20:17> Limitations: altered mental status (intoxicated) <Nelda Echavarriamonika Muñoz CNP - Last Filed: 10/13/21 20:17> History of Present Illness HPI narrative: Patient presents to the emergency department via EMS requesting detox from alcohol. She states that she was just discharged from [facility], for detox yesterday, she started drinking again. states she last drank recently , unable to provide an exact time or how much she drank. She denies any physical complaints at this time. Denies suicidal or homicidal ideations. Denies any recreational drug usage. Denies fevers, chills, dizziness, lightheadedness, chest pain, shortness of breath, difficulty breathing, weakness, numbness or tingling of her extremities. <Nelda Ramriez RADHA Muñoz - Last Filed: 10/13/21 20:17> Related Data Home Medications: Home Medications Medication Instructions Recorded Confirmed cholecalciferol (vitamin D3) 25 1 tab PO DAILY 10/13/21 10/13/21 mcg (1,000 unit) tablet ibuprofen 600 mg tablet 1 tab PO TID 10/13/21 10/13/21 melatonin 5 mg tablet 10 mg PO BEDTIME 10/13/21 10/13/21 nicotine (polacrilex) 2 mg buccal 2 mg PO Q2H 10/13/21 10/13/21 lozenge nicotine 14 mg/24 hr daily 1 patch topical DAILY 10/13/21 10/13/21 transdermal patch sertraline 100 mg tablet 1 tab PO DAILY 10/13/21 10/13/21 Previous Rx's Medication Instructions Recorded ondansetron 4 mg disintegrating 4 mg PO Q8H PRN nausea and 10/13/21 tablet vomiting #10 tabs <Nelda Muñoz CNP - Last Filed: 10/13/21 20:17> Allergies/Adverse Reactions: Allergies Allergy/AdvReac Type Severity Reaction Status Date / Time Penicillins [PENICILLINS] Allergy Intermediate HIVES Verified 05/02/20 13:38 <Nelda Muñoz CNP - Last Filed: 10/13/21 20:17> Review of Systems Review of Systems: Constitutional: No weight loss, fever, chills, weakness or fatigue. Skin: No rash or itching. Cardiovascular: No chest pain, chest pressure or chest discomfort. No palpitations or pedal edema. Respiratory: No shortness of breath, cough or sputum production. Gastrointestinal: No anorexia, nausea, vomiting or diarrhea. No abdominal pain or blood in stool. Genitourinary: No burning micturition. No urinary frequency or incontinence. Musculoskeletal: No muscle pain, back pain, joint pain or stiffness. <Nelda Muñoz CNP - Last Filed: 10/13/21 20:17> Yes all other systems are reviewed and are negative <Nelda Muñoz CNP - Last Filed: 10/13/21 20:17> [facility], LAT[facility] Past Medical History Attestation statement: The following information was validated with the patient. <Nelda Muñoz CNP - Last Filed: 10/13/21 20:17> Source: old records reviewed <Nelda Muñoz CNP - Last Filed: 10/13/21 20:17> Medical History: Medical History H/O alcohol abuse <Nelda Muñoz CNP - Last Filed: 10/13/21 20:17> Social History Social History: Social History Alcohol intake: current Alcohol intake frequency: 3 or more drinks per day Alcohol type: hard liquor Patient Tobacco Use Status: Current everyday Tobacco user Advance Directives: No Advance Directives Information Provided: No <Nelda Muñoz CNP - Last Filed: 10/13/21 20:17> Physical Exam ED Vital Signs: Vital Signs - 24 hr 10/13/21 11:48 10/13/21 15:09 10/13/21 19:23 Temperature 97.9 F Pulse Rate 76 88 94 Respiratory Rate 16 16 20 Blood Pressure 119/76 123/80 133/95 H Pulse Oximetry 96 94 94 Oxygen Delivery Method Room Air Room Air Room Air 10/14/21 06:22 Temperature 97.4 F Pulse Rate 74 Respiratory Rate 16 Blood Pressure 131/86 Pulse Oximetry 96 Oxygen Delivery Method Room Air BMI result Body Mass Index 23.4 Vital signs have been reviewed as normal and appeared to be correct. Blood pressure normal.? Heart rate normal.? Respiration rate normal. Temperature normal.? Oxygen saturation normal. <Nelda Muñoz CNP - Last Filed: 10/13/21 20:17> Vital Signs - 24 hr 10/13/21 11:48 10/13/21 15:09 10/13/21 19:23 Temperature 97.9 F Pulse Rate 76 88 94 Respiratory Rate 16 16 20 Blood Pressure 119/76 123/80 133/95 H Pulse Oximetry 96 94 94 Oxygen Delivery Method Room Air Room Air Room Air 10/14/21 06:22 Temperature 97.4 F Pulse Rate 74 Respiratory Rate 16 Blood Pressure 131/86 Pulse Oximetry 96 Oxygen Delivery Method Room Air BMI result Body Mass Index 23.4 <Jose Hammond MD - Last Filed: 10/14/21 07:33> Vital Signs - 24 hr 10/13/21 11:48 10/13/21 15:09 10/13/21 19:23 Temperature 97.9 F Pulse Rate 76 88 94 Respiratory Rate 16 16 20 Blood Pressure 119/76 123/80 133/95 H Pulse Oximetry 96 94 94 Oxygen Delivery Method Room Air Room Air Room Air 10/14/21 06:22 Temperature 97.4 F Pulse Rate 74 Respiratory Rate 16 Blood Pressure 131/86 Pulse Oximetry 96 Oxygen Delivery Method Room Air BMI result Body Mass Index 23.4 <SHMUEL Kaplan - Last Filed: 10/14/21 08:08> Appearance: Alert.?Oriented to person, place and time. Appears acutely intoxicated. Eyes: Pupils equal, round and reactive to light.? EOMI. No nystagmus. ENT: Pharynx normal.?? Neck: Normal inspection.? Neck supple.?? CVS: Heart sounds normal. Normal heart rate and rhythm.? Pulses normal.?? Respiratory: No respiratory distress.? Lung sounds clear to auscultation bilaterally?? Abdomen: Soft and non-tender. Normoactive bowel sounds. Skin: Skin warm and dry.? Normal skin color.? Extremities: No lower extremity edema.? Neuro: Moves all extremities spontaneously. Sensation intact bilaterally. CN II-XII intact. No focal neuro deficits. <Nelda Muñoz CNP - Last Filed: 10/13/21 20:17> Course Course Course Narrative: Patient is a 56-year-old female past medical history presenting to the emergency department acutely intoxicated testing assistance with detox. She has overall well-appearing, hemodynamically stable, answering questions appropriately very no apparent distress. Will obtain basic labs including CBC, BMP, COVID-19 testing, ethanol level, drug abuse screen. Will refer patient to care team/assistant women's tennis coach for assistance with potential disposition for detox. <Nelda Muñoz CNP - Last Filed: 10/13/21 20:17> Reevaluation(s) Reevaluation #1: CBC is overall unremarkable. CMP unremarkable. Ethyl alcohol level 281 at 12:33. Patient to be placed in position observation she will require additional time to become clinically sober, be evaluated by care team/assistant women's tennis coach for assistance with detox, she is overall well-appearing, alert verbal, in no apparent distress, hemodynamically stable. <Nelda Muñoz CNP - Last Filed: 10/13/21 20:17> Time: 13:24 <Nelda Muñoz CNP - Last Filed: 10/13/21 20:17> Reevaluation #2: Patient was evaluated by assistant women's tennis coach from care team, she is requesting to go home, she prefers to wait at home, she is hopeful for an open bed [facility] <Nelda Muñoz CNP - Last Filed: 10/13/21 20:17> Time: 15:59 <Nelda Muñoz CNP - Last Filed: 10/13/21 20:17> Reevaluation #3: Patient with acute nausea, suspect this is secondary to alcohol withdrawal, will order Librium 25 mg p.o., Zofran 4 mg p.o. Discussed with patient plan of care, she continues decline detox at this time, stating that she needs to go home as she has her daughter's wedding upcoming. Patient provided with a prescription for Zofran to take home. She is ambulatory with a steady gait. Alert and verbal. <Nelda Muñoz CNP - Last Filed: 10/13/21 20:17> Time: 18:30 <Nelda Muñoz CNP - Last Filed: 10/13/21 20:17> Additional Reevaluation(s): 1914: Nursing staff attempted to discharge patient at this time, she was tearful, does not feel safe to go home, is worried about withdrawal symptoms. head men's tennis coach spoke with CARE team, patient to be transferred to the pod, for assistance in the morning with placement at detox. Will monitor CIWA, Librium p.r.n. Placed in physician observation at this time, she will be re-evaluated in the morning for EATS bed. <Nelda Muñoz CNP - Last Filed: 10/13/21 20:17> Consultations Consultation #1: 56-year-old female history of alcohol abuse came in requesting detox attempt to discharge the patient yesterday patient was tearful with no SI or HI, on eventual night, awaiting for assistant women's tennis coach for re-evaluation. Continue with physician observation. <Jose Hammond MD - Last Filed: 10/14/21 07:33> Time: 07:32 <Jose Hammond MD - Last Filed: 10/14/21 07:33> Consultation #2: Physician observation discontinued at this time. Patient has a sided that she would like to go home and does not want a weight in the hospital for detox bed. She is not suicidal or homicidal, not a danger to herself or others. At this time she is stable for discharge home with outpatient follow-up. <SHMUEL Kaplan - Last Filed: 10/14/21 08:08> Time: 08:08 <SHMUEL Kaplan - Last Filed: 10/14/21 08:08> MDM - Alcohol Medical Records Attestation: I reviewed the patient's medical records. <Nelda Muñoz CNP - Last Filed: 10/13/21 20:17> Lab Data Attestation: I reviewed the patient's lab results. <Nelda Ramirez RADHA Muñoz - Last Filed: 10/13/21 20:17> Result diagrams: : 10/13/21 12:33 10/13/21 12:33 <Nelda MuñozRADHA - Last Filed: 10/13/21 20:17> Labs: Lab Results 10/13/21 10/13/21 10/13/21 Range/Units 12:33 12:33 12:33 WBC 9.3 (4.8-10.8) X10*3/uL RBC 4.24 (4.20-5.50) X10*6/uL Hgb 13.3 (12.0-16.0) g/dl Hct 38.7 (37.0-47.0) % MCV 91.3 (80.0-98.0) fL MCH 31.4 (27.0-33.0) pg MCHC 34.4 (31.0-35.0) g/dl RDW 15.9 (11.0-16.0) % Plt Count 341 D (160-400) X10*3/uL MPV 9.1 L (9.4-12.3) fL Immature Gran % (Auto) 0.5 H (0.0-0.4) % Neut % (Auto) 63.4 (45-73) % Lymph % (Auto) 28.9 (20-40) % [place] % (Auto) 6.0 (2-11) % Eos % (Auto) 0.2 (0-4) % Baso % (Auto) 1.0 (0-2) % Lymph # (Auto) 2.7 (1.2-4.9) X10*3/uL [place] # (Auto) 0.6 (0.1-1.2) X10*3/uL Eos # (Auto) 0.0 (0.0-0.4) X10*3/uL Baso # (Auto) 0.1 (0.0-0.2) X10*3/uL Abs Immat Gran (auto) 0.05 H (0.00-0.03) X10*3/uL Absolute Neuts (auto) 5.9 (2.0-8.3) x10*3/uL Absolute Nucleated RBC 0.000 (0.0-0.012) X10*3/uL Nucleated RBC % (auto) 0.0 (0.0-0.2) /100WBC Sodium 142 (135-145) mmol/L Potassium 3.5 (3.3-5.1) mmol/L Chloride 101 (96-108) mmol/L Carbon Dioxide 27 (22-29) mmol/L Anion Gap 18 (12-20) BUN 11 (9-16) mg/dL Creatinine 0.74 (0.5-1.4) mg/dL Estim Creat Clear Calc 62.4 Estimated GFR > 60 Random Glucose 88 (60-115) mg/dL Calcium 9.3 (8.4-10.2) mg/dL Total Bilirubin < 0.2 (0.0-1.0) mg/dL AST 19 (5-31) U/L ALT 15 (0-31) U/L Alkaline Phosphatase 82 D (39-117) U/L Total Protein 7.5 (6.5-8.0) g/dL Albumin 4.6 (3.5-5.0) g/dL Ethyl Alcohol 281 mg/dL COVID-19 ([facility]) Negative (Negative) COVID-19 Clin Com See Note <Nelda Muñoz, GROUNDSKEEPER SUPERVISOR - Last Filed: 10/13/21 20:17> Lab Results 10/13/21 10/13/21 10/13/21 Range/Units 12:33 12:33 12:33 WBC 9.3 (4.8-10.8) X10*3/uL RBC 4.24 (4.20-5.50) X10*6/uL Hgb 13.3 (12.0-16.0) g/dl Hct 38.7 (37.0-47.0) % MCV 91.3 (80.0-98.0) fL MCH 31.4 (27.0-33.0) pg MCHC 34.4 (31.0-35.0) g/dl RDW 15.9 (11.0-16.0) % Plt Count 341 D (160-400) X10*3/uL MPV 9.1 L (9.4-12.3) fL Immature Gran % (Auto) 0.5 H (0.0-0.4) % Neut % (Auto) 63.4 (45-73) % Lymph % (Auto) 28.9 (20-40) % [place] % (Auto) 6.0 (2-11) % Eos % (Auto) 0.2 (0-4) % Baso % (Auto) 1.0 (0-2) % Lymph # (Auto) 2.7 (1.2-4.9) X10*3/uL [place] # (Auto) 0.6 (0.1-1.2) X10*3/uL Eos # (Auto) 0.0 (0.0-0.4) X10*3/uL Baso # (Auto) 0.1 (0.0-0.2) X10*3/uL Abs Immat Gran (auto) 0.05 H (0.00-0.03) X10*3/uL Absolute Neuts (auto) 5.9 (2.0-8.3) x10*3/uL Absolute Nucleated RBC 0.000 (0.0-0.012) X10*3/uL Nucleated RBC % (auto) 0.0 (0.0-0.2) /100WBC Sodium 142 (135-145) mmol/L Potassium 3.5 (3.3-5.1) mmol/L Chloride 101 (96-108) mmol/L Carbon Dioxide 27 (22-29) mmol/L Anion Gap 18 (12-20) BUN 11 (9-16) mg/dL Creatinine 0.74 (0.5-1.4) mg/dL Estim Creat Clear Calc 62.4 Estimated GFR > 60 Random Glucose 88 (60-115) mg/dL Calcium 9.3 (8.4-10.2) mg/dL Total Bilirubin < 0.2 (0.0-1.0) mg/dL AST 19 (5-31) U/L ALT 15 (0-31) U/L Alkaline Phosphatase 82 D (39-117) U/L Total Protein 7.5 (6.5-8.0) g/dL Albumin 4.6 (3.5-5.0) g/dL Ethyl Alcohol 281 mg/dL COVID-19 ([facility]) Negative (Negative) COVID-19 Clin Com See Note <Jose Hammond MD - Last Filed: 10/14/21 07:33> Lab Results 10/13/21 10/13/21 10/13/21 Range/Units 12:33 12:33 12:33 WBC 9.3 (4.8-10.8) X10*3/uL RBC 4.24 (4.20-5.50) X10*6/uL Hgb 13.3 (12.0-16.0) g/dl Hct 38.7 (37.0-47.0) % MCV 91.3 (80.0-98.0) fL MCH 31.4 (27.0-33.0) pg MCHC 34.4 (31.0-35.0) g/dl RDW 15.9 (11.0-16.0) % Plt Count 341 D (160-400) X10*3/uL MPV 9.1 L (9.4-12.3) fL Immature Gran % (Auto) 0.5 H (0.0-0.4) % Neut % (Auto) 63.4 (45-73) % Lymph % (Auto) 28.9 (20-40) % [place] % (Auto) 6.0 (2-11) % Eos % (Auto) 0.2 (0-4) % Baso % (Auto) 1.0 (0-2) % Lymph # (Auto) 2.7 (1.2-4.9) X10*3/uL [place] # (Auto) 0.6 (0.1-1.2) X10*3/uL Eos # (Auto) 0.0 (0.0-0.4) X10*3/uL Baso # (Auto) 0.1 (0.0-0.2) X10*3/uL Abs Immat Gran (auto) 0.05 H (0.00-0.03) X10*3/uL Absolute Neuts (auto) 5.9 (2.0-8.3) x10*3/uL Absolute Nucleated RBC 0.000 (0.0-0.012) X10*3/uL Nucleated RBC % (auto) 0.0 (0.0-0.2) /100WBC Sodium 142 (135-145) mmol/L Potassium 3.5 (3.3-5.1) mmol/L Chloride 101 (96-108) mmol/L Carbon Dioxide 27 (22-29) mmol/L Anion Gap 18 (12-20) BUN 11 (9-16) mg/dL Creatinine 0.74 (0.5-1.4) mg/dL Estim Creat Clear Calc 62.4 Estimated GFR > 60 Random Glucose 88 (60-115) mg/dL Calcium 9.3 (8.4-10.2) mg/dL Total Bilirubin < 0.2 (0.0-1.0) mg/dL AST 19 (5-31) U/L ALT 15 (0-31) U/L Alkaline Phosphatase 82 D (39-117) U/L Total Protein 7.5 (6.5-8.0) g/dL Albumin 4.6 (3.5-5.0) g/dL Ethyl Alcohol 281 mg/dL COVID-19 ([facility]) Negative (Negative) COVID-19 Clin Com See Note <SHMUEL Kaplan - Last Filed: 10/14/21 08:08> Discharge Plan Discharge Clinical Impression: Alcoholism <Nelda Muñoz CNP - Last Filed: 10/13/21 20:17> Patient Disposition: Home, Self-Care <Nelda Muñoz CNP - Last Filed: 10/13/21 20:17> Instructions: Alcohol Use Disorder (ED) <Nelda Muñoz CNP - Last Filed: 10/13/21 20:17> Additional Instructions: Do not drink alcohol. Recommend detox. If you feel are going through withdrawal, come back to the hospital for evaluation. If you develop new or worsening symptoms call 911 or come back to the ER for further evaluation. <Nelda Muñoz CNP - Last Filed: 10/13/21 20:17> Prescriptions: New ondansetron 4 mg tablet,disintegrating 4 mg PO Q8H PRN (Reason: nausea and vomiting) Qty: 10 0RF No Action nicotine 14 mg/24 hr patch 24 hour 1 patch topical DAILY sertraline 100 mg tablet 1 tab PO DAILY ibuprofen 600 mg tablet 1 tab PO TID nicotine (polacrilex) 2 mg lozenge 2 mg PO Q2H cholecalciferol (vitamin D3) 25 mcg (1,000 unit) tablet 1 tab PO DAILY melatonin 5 mg tablet 10 mg PO BEDTIME <Nelda Muñoz CNP - Last Filed: 10/13/21 20:17>
[2021-10-13 12:43] LABS: MANUAL DIFF FLAG NO
[2021-10-13 12:55] LABS: Basophils Absolute Auto 0.1 X10*3/uL (0.0-0.2); Eosinophils Percent Auto 0.2 % (0-4); Hematocrit 38.7 % (37.0-47.0); Hemoglobin 13.3 g/dl (12.0-16.0); Imm Gran Abs Auto 0.05 X10*3/uL (0.00-0.03); Imm Gran Pct Auto 0.5 % (0.0-0.4); Lymphocytes Absolute Auto 2.7 X10*3/uL (1.2-4.9); Lymphocytes Percent Auto 28.9 % (20-40); Mean Corpuscular HGB Conc 34.4 g/dl (31.0-35.0); Mean Corpuscular Hemoglobin 31.4 pg (27.0-33.0); Mean Corpuscular Volume 91.3 fL (80.0-98.0); Mean Platelet Volume 9.1 fL (9.4-12.3); Monocytes Absolute Auto 0.6 X10*3/uL (0.1-1.2); Neutrophils Absolute Auto 5.9 x10*3/uL (2.0-8.3); Neutrophils Percent Auto 63.4 % (45-73); Platelet Count 341 X10*3/uL (160-400); Red Blood Count 4.24 X10*6/uL (4.20-5.50); Red Cell Distribution Width 15.9 % (11.0-16.0); White Blood Count 9.3 X10*3/uL (4.8-10.8)
[2021-10-13 13:05] LABS: COVID-19 Test Negative (Negative); IDNOW Serial# 16C4AD1C
[2021-10-13 13:13] LABS: Alanine Aminotransferase 15 U/L (0-31); Albumin Level 4.6 g/dL (3.5-5.0); Alkaline Phosphatase 82 U/L (39-117); Anion Gap 18 (12-20); Aspartate Amino Transferase 19 U/L (5-31); Bilirubin Total < 0.2 mg/dL (0.0-1.0); Blood Urea Nitrogen 11 mg/dL (9-16); Calcium 9.3 mg/dL (8.4-10.2); Carbon Dioxide 27 mmol/L (22-29); Chloride 101 mmol/L (96-108); Creatinine Clr Calc Pharmacy 62.4; Estimated Glomerular Filt Rate > 60; Ethanol 281 mg/dL; Glucose Random 88 mg/dL (60-115); Potassium 3.5 mmol/L (3.3-5.1); Sodium 142 mmol/L (135-145); Total Protein 7.5 g/dL (6.5-8.0)
--- NOTE | 2021-10-13 13:31 | MHC.RECOVSUP ---
Addendum entered by Gerson Nguyen 10/13/21 19:14: Patient is in early withdrawel and will be moved to the [facility] until tomorrow, with the recovery team F/U. Patient wants to go to [facility] Original Note: ? Reason for consult:RECOVERY Support o Current location:[facility] o Identified substance use concern:ETOH - Seeking ATS (detox) - Support ? Intervention: o ATS bed search started/completed/in process o Community resources provided o Harm reduction discussion ? Plan: o Patient to follow up with [facility] after discharge ? Additional information:Patient seeking detox@[facility], patient only wants to go there. They are at capacity. She wants to get on their waiting list and be discharged. patient given resources.
[2021-10-13 15:09] VITALS: BP 123/80; PULSE 88; RESP 16; O2SAT 94
[2021-10-13] MEDS: Ondansetron ODT 4 MG TAB.RAPDIS TRANSLINGU (18:59)
[2021-10-13] MEDS: chlordiazePOXIDE HCl 25 MG CAPSULE PO ×2 (19:09→22:16)
[2021-10-13 19:23] VITALS: BP 133/95; PULSE 94; RESP 20; O2SAT 94
[2021-10-13] MEDS: Melatonin 3 MG TABLET 9 MG PO (21:03)
--- NOTE | 2021-10-13 22:21 | PC.NURSE ---
Patient moaning, reported discomfort, scored 10 on CIWA, PRN Librium 25 mg administered as ordered/pending effect, will continue to monitor.
[2021-10-14 06:22] VITALS: BP 131/86; PULSE 74; RESP 16; TEMP 36.3; O2SAT 96
[2021-10-14] MEDS: chlordiazePOXIDE HCl 25 MG CAPSULE PO (06:27)
--- NOTE | 2021-10-14 06:31 | PC.NURSE ---
CIWA 5 at 0630, librium 25 mg administered for comfort, patient slept through the night, behavior non concerning, medication compliant, disposition per recovery team is EATS bed search, urine pending, VSS, will continue to monitor.
--- NOTE | 2021-10-14 07:05 | PC.NURSE ---
patient appears to remain asleep at present rspirations are evena dn unlabored patient appears in no distress
== END 2021-10-14 08:19 | disposition home or self-care (01) ==
PROVIDERS: Nurse Practitioner Family; Emergency Provider Emergency Medicine; PCP Family Medicine
DX: F10.229 Alcohol dependence with intoxication, unspecified (principal); Y90.8 Blood alcohol level of 240 mg/100 ml or more; Z71.41 Alcohol abuse counseling and surveillance of alcoholic; Z79.899 Other long term (current) drug therapy; Z20.822 Contact with and (suspected) exposure to COVID-19
CPT/HCPCS: 80053; 82077; 85025; 87635; 99284